=== PATIENT | female | born 1940 | race Caucasian/White ===

== ENCOUNTER → 2017-06-02 | Outpatient (CLI) | payer MEDICARE, BC ==
--- NOTE | 2017-06-02 11:08 | P.HPOB ---
History of Present Illness H&P Date: 06/02/17 Chief Complaint: The patient is here for her routine gynecologic exam and mammogram. This is a 76-year-old with an LMP of 1980. And the patient is without gynecologic complaints and denies any postmenopausal bleeding. Review of Systems The patient has lost about 18 pounds over the last year. She is complaining of fatigue. She denies respiratory or cardiac problems. G.I.: she has occasional problems with hemorrhoids and sometimes they can bleed after a bowel movement. She denies maltreatment or falling. : she denies any significant problems with urinary leakage. Past Medical History Past Medical History: Hyperlipidemia Additional Past Medical History / Comment(s): She also has a history of Paget's disease of the bone, inner ear problems, and macular degeneration. Past Surgical History: Joint Replacement (Hip replacement in 2008. This was complicated with postoperative diverticulitis with an abscess and did require laparotomy with removal of 4 inches of bowel.) Additional Past Surgical History / Comment(s): She also had a colonoscopy in 2013 and she has had multiple colonoscopies before this. She had ear surgery at age 23. Smoking Status: Former smoker (She quit smoking in her 20s.) Past Alcohol Use History: Rare (5 drinks or less in a year is typical for her.) Past Drug Use History: None Reported - Past Family History Mother Sister(s) Family Medical History: Cancer (One sister had bowel and liver cancer. Another sister had lung and breast cancer. Brother had prostate cancer.), Diabetes Mellitus (Mother and sister had diabetes.), Myocardial Infarction ([place]) (Father had an MRI.) Medications and Allergies Home Medications and Allergies Comment(s): Atorvastatin 20 mg daily, Areds 2 vitamin one daily, red rice yeast 600 mg to daily, Centrum Silver vitamin one daily, daily, Restoril generic one at HS typically used 2 nights per week PRN insomnia, vitamin B12 1000 g daily, flaxseed oil 1000 mg daily, glucosamine chondroitin one daily, citracal . Allergies Allergy/AdvReac Type Severity Reaction Status Date / Time Penicillins Allergy Rash/Hives Verified 06/02/17 10:57 Sulfa (Sulfonamide Allergy Rash/Hives Verified 06/02/17 10:57 Antibiotics) Exam - Vital Signs Vital signs: Blood pressure 155/69. Repeat blood pressure 148/68. Height 5'9". Weight 143 pounds. 98.3. Pulse 78. This is a well-developed well-nourished white female who is alert and oriented times 3 in no acute distress. HEENT: Within normal limits. NECK: Supple without mass or thyromegaly. CHEST AND LUNGS: Clear to auscultation. HEART: Regular rate and rhythm. BREASTS: Are without mass or discharge. AXILLARY EXAM: Negative for adenopathy. BACK: Negative for CVA tenderness. ABDOMEN: Soft, nontender, without palpable masses. PELVIC EXAM: Normal external genitalia with moderate atrophy. Cervix and vagina appears moderately to severely atrophic. The cervix is very stenotic, scarred appearing and nearly flat with the back of the vagina consistent with her previous cauterization procedures. There are no lesions noted. There is no unusual discharge. The uterus is midposition, nongravid size and nontender. There are no palpable adnexal masses or tenderness. RECTAL EXAM: recto vaginal exam is negative for master tenderness and is negative for occult blood. EXTREMITIES: Nontender. IMPRESSION: 1. 76-year-old menopausal female with cervical atrophy and scarring consistent with her previous cauterizations. 2. Elevated blood pressure. PLAN: 1. Pap smear was deferred since she had a normal one last year. 2. Self breast examination was discussed. 3. Mammogram will be done today. 4. Bone density testing has been done through Dr. Thomson. She states bone density testing was normal in 2016. She'll continue to do her testing through Dr. Thomson. 5. I have recommended flu shots in the fall. She states she will probably decline this. 6. She will return in one year.
--- NOTE | 2017-06-03 11:37 | MM ---
Reason for exam: screening (asymptomatic). Last mammogram was performed 1 year and 4 months ago. History: Patient is postmenopausal. Physical Findings: A clinical breast exam by your physician is recommended on an annual basis and results should be correlated with mammographic findings. MG 3D Screening Mammo W/Cad Bilateral CC and MLO view(s) were taken. Prior study comparison: February 04, 2016, bilateral MG 3d screening mammo w/cad. December 21, 2013, mammogram, performed at [facility]. The breast tissue is extremely dense which could obscure a lesion on mammography. ASSESSMENT: Negative, BI-RAD 1 RECOMMENDATION: Routine screening mammogram of both breasts in 1 year.
== END | disposition home or self-care (01) ==
LOC: WWCWWP 09:39
PROVIDERS: ATTEND Obstetrics & Gynecology
DX: Z12.31 Encounter for screening mammogram for malignant neoplasm of breast (principal)
CPT/HCPCS: 77063; G0202

== ENCOUNTER 2018-03-29 18:40 | Emergency (ER) | payer MEDICARE, BC ==
[2018-03-29 18:45] VITALS: TEMP 98.1
[2018-03-29] MEDS ORDERED: SODIUM CHLORIDE 0.9% 1,000 ML IV STA (19:12)
[2018-03-29 19:32] LABS: Basophils % (A) 0 %; Eosinophils # (A) 0.2 k/uL (0-0.7); Eosinophils % (A) 4 %; HCT 29.9 % (34.0-46.0); HGB 9.6 gm/dL (11.4-16.0); Lymphocytes % (A) 17 %; MCH 29.4 pg (25.0-35.0); MCHC 32.3 g/dL (31.0-37.0); MCV 91.1 fL (80.0-100.0); Mean Platelet Volume 7.2; Monocytes # (A) 0.6 k/uL (0-1.0); Monocytes % (A) 10 %; Neutrophils # (A) 3.8 k/uL (1.3-7.7); Neutrophils % (A) 65 %; Platelet Count 263 k/uL (150-450); RBC 3.28 m/uL (3.80-5.40); RDW 13.4 % (11.5-15.5); WBC 5.8 k/uL (3.8-10.6)
[2018-03-29 19:55] LABS: Albumin 3.6 g/dL (3.5-5.0); Creatine Kinase 54 U/L (30-135); Magnesium 2.2 mg/dL (1.6-2.3); Total Bilirubin 0.1 mg/dL (0.2-1.3); Total Protein 5.7 g/dL (6.3-8.2)
[2018-03-29 20:05] LABS: Prothrombin Time 9.5 sec (9.0-12.0)
[2018-03-29 20:06] LABS: Creatine Kinase MB 0.5 ng/mL (0.0-2.4); Troponin I <0.012 ng/mL (0.000-0.034)
[2018-03-29 20:11] LABS: Partial Thromboplastin Time 20.1 sec (22.0-30.0)
--- NOTE | 2018-03-29 20:35 | ED ---
General Adult HPI - General Chief complaint: Recheck/Abnormal Lab/Rx Stated complaint: abd labs Time Seen by Provider: 03/29/18 19:10 Source: patient, RN notes reviewed, old records reviewed Mode of arrival: wheelchair Limitations: no limitations - History of Present Illness Initial comments: This is a 77-year-old female the ER for evaluation chronic fatigue and recent fatigue. Patient states she does admit to positive and positive GI bleed as of late. Patient had abnormal outpatient lab test included a 0.0, told to come to the ER for further evaluation. Patient has no active bleeding currently and has no pain. No other complaints - Related Data Home Medications Medication Instructions Recorded Confirmed Atorvastatin [Lipitor] 20 mg PO HS 03/29/18 03/29/18 Calcium Carbonate/Vitamin D3 1 tab PO DAILY 03/29/18 03/29/18 [Calcium 600-Vit D3 400 Tablet] Cyanocobalamin (Vitamin B-12) 1,000 mcg PO DAILY 03/29/18 03/29/18 [Vitamin B-12] Ferrous Sulfate [Feosol] 325 mg PO DAILY 03/29/18 03/29/18 Flaxseed Oil [[place]-3 Flaxseed Oil] 1,000 mg PO DAILY 03/29/18 03/29/18 Glucosam/Paul-Msm1/C/Juanito/Bosw 1 tab PO DAILY 03/29/18 03/29/18 [Glucosamine-Chondroitin Tablet] Lisinopril [Zestril] 10 mg PO HS 03/29/18 03/29/18 Multivit-Min/FA/Lycopen/Lutein 1 tab PO DAILY 03/29/18 03/29/18 [Centrum Silver Tablet] Red Yeast Rice 600 mg PO DAILY 03/29/18 03/29/18 Temazepam 30 mg PO HS PRN 03/29/18 03/29/18 Vit C/E/Zn/Coppr/Lutein/Zeaxan 1 cap PO DAILY 03/29/18 03/29/18 [Preservision Areds 2 Softgel] Allergies Allergy/AdvReac Type Severity Reaction Status Date / Time Penicillins Allergy Rash/Hives Verified 03/29/18 19:28 Sulfa (Sulfonamide Allergy Rash/Hives Verified 03/29/18 19:28 Antibiotics) Review of Systems ROS Statement: Those systems with pertinent positive or pertinent negative responses have been documented in the HPI. ROS Other: All systems not noted in ROS Statement are negative. Past Medical History Past Medical History: Hyperlipidemia Additional Past Medical History / Comment(s): She also has a history of Paget's disease of the bone, inner ear problems, and macular degeneration. History of Any Multi-Drug Resistant Organisms: None Reported Past Surgical History: Joint Replacement Additional Past Surgical History / Comment(s): She also had a colonoscopy in 2013 and she has had multiple colonoscopies before this. She had ear surgery at age 23. Past Psychological History: No Psychological Hx Reported Smoking Status: Former smoker Past Alcohol Use History: Rare Past Drug Use History: None Reported - Past Family History Mother Sister(s) Family Medical History: Cancer (One sister had bowel and liver cancer. Another sister had lung and breast cancer. Brother had prostate cancer.), Diabetes Mellitus (Mother and sister had diabetes.), Myocardial Infarction ([place]) (Father had an MRI.) General Exam Limitations: no limitations General appearance: alert, in no apparent distress Head exam: Present: atraumatic, normocephalic, normal inspection Eye exam: Present: normal appearance, PERRL, EOMI. Absent: scleral icterus, conjunctival injection, periorbital swelling ENT exam: Present: normal exam, mucous membranes moist Neck exam: Present: normal inspection. Absent: tenderness, meningismus, lymphadenopathy Respiratory exam: Present: normal lung sounds bilaterally. Absent: respiratory distress, wheezes, rales, rhonchi, stridor Cardiovascular Exam: Present: regular rate, normal rhythm, normal heart sounds. Absent: systolic murmur, diastolic murmur, rubs, gallop, clicks GI/Abdominal exam: Present: soft, normal bowel sounds. Absent: distended, tenderness, guarding, rebound, rigid Extremities exam: Present: normal inspection, full ROM, normal capillary refill. Absent: tenderness, pedal edema, joint swelling, calf tenderness Back exam: Present: normal inspection Neurological exam: Present: alert, oriented X3, CN II-XII intact Psychiatric exam: Present: normal affect, normal mood Skin exam: Present: warm, dry, intact, normal color. Absent: rash Course Vital Signs 03/29/18 18:43 Temperature 98.1 F Pulse Rate 90 Respiratory 20 Rate Blood Pressure 168/70 O2 Sat by Pulse 99 Oximetry - Reevaluation(s) Reevaluation #1: 03/29/18 20:34 Patient without active bleeding Medical Decision Making - Medical Decision Making 77 female the ER for evaluation, patient will be discharged home to follow-up with primary care regarding anemia, hemoglobin up 1.6 from prior - Lab Data Result diagrams: 03/29/18 19:22 03/29/18 19:22 Lab Results 03/29/18 03/29/18 03/29/18 Range/Units 19:22 19:22 19:22 WBC 5.8 (3.8-10.6) k/uL RBC 3.28 L (3.80-5.40) m/uL Hgb 9.6 L (11.4-16.0) gm/dL Hct 29.9 L (34.0-46.0) % MCV 91.1 (80.0-100.0) fL MCH 29.4 (25.0-35.0) pg MCHC 32.3 (31.0-37.0) g/dL RDW 13.4 (11.5-15.5) % Plt Count 263 (150-450) k/uL Neutrophils % 65 % Lymphocytes % 17 % Monocytes % 10 % Eosinophils % 4 % Basophils % 0 % Neutrophils # 3.8 (1.3-7.7) k/uL Lymphocytes # 1.0 (1.0-4.8) k/uL Monocytes # 0.6 (0-1.0) k/uL Eosinophils # 0.2 (0-0.7) k/uL Basophils # 0.0 (0-0.2) k/uL PT (9.0-12.0) sec INR (<1.2) APTT (22.0-30.0) sec Sodium 141 (137-145) mmol/L Potassium 4.0 (3.5-5.1) mmol/L Chloride 101 (98-107) mmol/L Carbon Dioxide 28 (22-30) mmol/L Anion Gap 12 mmol/L BUN 24 H (7-17) mg/dL Creatinine 1.26 H (0.52-1.04) mg/dL Est GFR (CKD-EPI)AfAm 47 (>60 ml/min/1.73 sqM) Est GFR (CKD-EPI)NonAf 41 (>60 ml/min/1.73 sqM) Glucose 101 H (74-99) mg/dL Calcium 9.0 (8.4-10.2) mg/dL Magnesium 2.2 (1.6-2.3) mg/dL Total Bilirubin 0.1 L (0.2-1.3) mg/dL AST 22 (14-36) U/L ALT 25 (9-52) U/L Alkaline Phosphatase 48 (38-126) U/L Total Creatine Kinase 54 (30-135) U/L CK-MB (CK-2) 0.5 (0.0-2.4) ng/mL CK-MB (CK-2) Rel Index 0.9 Troponin I <0.012 (0.000-0.034) ng/mL Total Protein 5.7 L (6.3-8.2) g/dL Albumin 3.6 (3.5-5.0) g/dL Blood Type Blood Type Recheck Antibody Screen Spec Expiration Date 03/29/18 03/29/18 Range/Units 19:22 19:22 WBC (3.8-10.6) k/uL RBC (3.80-5.40) m/uL Hgb (11.4-16.0) gm/dL Hct (34.0-46.0) % MCV (80.0-100.0) fL MCH (25.0-35.0) pg MCHC (31.0-37.0) g/dL RDW (11.5-15.5) % Plt Count (150-450) k/uL Neutrophils % % Lymphocytes % % Monocytes % % Eosinophils % % Basophils % % Neutrophils # (1.3-7.7) k/uL Lymphocytes # (1.0-4.8) k/uL Monocytes # (0-1.0) k/uL Eosinophils # (0-0.7) k/uL Basophils # (0-0.2) k/uL PT 9.5 (9.0-12.0) sec INR 1.0 (<1.2) APTT 20.1 L (22.0-30.0) sec Sodium (137-145) mmol/L Potassium (3.5-5.1) mmol/L Chloride (98-107) mmol/L Carbon Dioxide (22-30) mmol/L Anion Gap mmol/L BUN (7-17) mg/dL Creatinine (0.52-1.04) mg/dL Est GFR (CKD-EPI)AfAm (>60 ml/min/1.73 sqM) Est GFR (CKD-EPI)NonAf (>60 ml/min/1.73 sqM) Glucose (74-99) mg/dL Calcium (8.4-10.2) mg/dL Magnesium (1.6-2.3) mg/dL Total Bilirubin (0.2-1.3) mg/dL AST (14-36) U/L ALT (9-52) U/L Alkaline Phosphatase (38-126) U/L Total Creatine Kinase (30-135) U/L CK-MB (CK-2) (0.0-2.4) ng/mL CK-MB (CK-2) Rel Index Troponin I (0.000-0.034) ng/mL Total Protein (6.3-8.2) g/dL Albumin (3.5-5.0) g/dL Blood Type A Positive Blood Type Recheck CABO Indicated Antibody Screen NEGATIVE Spec Expiration Date 04/01/2018 - 2321 Disposition Clinical Impression: Anemia, Hemorrhoids, internal, with bleeding Disposition: HOME SELF-CARE Condition: Good Instructions: Anemia (ED), Hemorrhoids (ED) Is patient prescribed a controlled substance at d/c from ED?: No Referrals: Eve Feng DO [Primary Care Provider] - 1-2 days
[2018-03-29 21:02] VITALS: BP 135/62; PULSE 76; RESP 16
== END 2018-03-29 21:02 | disposition home or self-care (01) ==
LOC: EC 18:40
DX: K64.8 Other hemorrhoids (principal); D64.9 Anemia, unspecified; E78.5 Hyperlipidemia, unspecified; Z87.891 Personal history of nicotine dependence; Z79.899 Other long term (current) drug therapy; Z88.0 Allergy status to penicillin; Z88.2 Allergy status to sulfonamides
CPT/HCPCS: 36415; 80053; 82550; 82553; 83735; 84484; 85025; 85610; 85730; 86850; 86900; 86901; 96360; 99284

== ENCOUNTER → 2018-08-10 | Outpatient (CLI) | payer MEDICARE, BC ==
[2018-08-10 10:31] VITALS: BP 125/70; PULSE 81; TEMP 97.8; BMI 21.5
--- NOTE | 2018-08-10 11:19 | P.HPOB ---
History of Present Illness H&P Date: 08/10/18 Chief Complaint: The patient is here for her routine gynecologic exam and mammogram. This is a 77-year-old with an LMP of 1980. The patient is without gynecologic complaints and denies any postmenopausal bleeding. Review of Systems She is gained 3 pounds over the last year. She denies respiratory, cardiac and G.I. problems. She denies maltreatment or problems with falling. : she denies any significant problems with urinary leakage. Past Medical History Past Medical History: Hyperlipidemia Additional Past Medical History / Comment(s): She also has a history of Paget's disease of the bone, inner ear problems, and macular degeneration. History of Any Multi-Drug Resistant Organisms: None Reported Past Surgical History: Bowel Resection (Diverticulitis requiring 4 inches of bowel to be removed.), Joint Replacement (Hip replacement 2008) Additional Past Surgical History / Comment(s): She also had a colonoscopy in 2017 and she has had multiple colonoscopies before this. She had ear surgery at age 23. Past Psychological History: No Psychological Hx Reported Smoking Status: Former smoker (Quit in her 20s.) Past Alcohol Use History: Rare (3 per Year) Past Drug Use History: None Reported Additional History: She's been since 2000 and this is her 2nd marriage. She is retired. She has 4 great grandchildren. - Past Family History Mother Sister(s) Family Medical History: Cancer (Bowel and liver cancer), Diabetes Mellitus, Myocardial Infarction ([place]) Additional Family Medical History / Comment(s): Another sister had lung cancer and breast cancer. Brother(s) Family Medical History: Cancer (Prostate cancer), Diabetes Mellitus Father Family Medical History: Myocardial Infarction ([place]) Medications and Allergies Home Medications Medication Instructions Recorded Confirmed Type Atorvastatin [Lipitor] 20 mg PO HS 03/29/18 08/10/18 History Calcium Carbonate/Vitamin D3 1 tab PO DAILY 03/29/18 08/10/18 History [Calcium 600-Vit D3 400 Tablet] Cyanocobalamin (Vitamin B-12) 1,000 mcg PO DAILY 03/29/18 08/10/18 History [Vitamin B-12] Ferrous Sulfate [Feosol] 325 mg PO DAILY 03/29/18 08/10/18 History Flaxseed Oil [[place]-3 Flaxseed Oil] 1,000 mg PO DAILY 03/29/18 08/10/18 History Glucosam/Paul-Msm1/C/Juanito/Bosw 1 tab PO DAILY 03/29/18 08/10/18 History [Glucosamine-Chondroitin Tablet] Lisinopril [Zestril] 10 mg PO HS 03/29/18 08/10/18 History Multivit-Min/FA/Lycopen/Lutein 1 tab PO DAILY 03/29/18 08/10/18 History [Centrum Silver Tablet] Temazepam 30 mg PO HS PRN 03/29/18 08/10/18 History Vit C/E/Zn/Coppr/Lutein/Zeaxan 1 cap PO DAILY 03/29/18 08/10/18 History [Preservision Areds 2 Softgel] Allergies Allergy/AdvReac Type Severity Reaction Status Date / Time Penicillins Allergy Rash/Hives Verified 08/10/18 10:27 Sulfa (Sulfonamide Allergy Rash/Hives Verified 08/10/18 10:27 Antibiotics) Exam Vital Signs Temp Pulse BP 08/10/18 10:28 97.8 F 81 125/70 Intake and Output 08/09/18 08/10/18 08/10/18 22:59 06:59 14:59 Other: Weight 66.224 kg Height 5'9", BMI 21.6. This is a well-developed well-nourished white female who is alert and oriented times 3 in no acute distress. HEENT: Within normal limits. NECK: Supple without mass or thyromegaly. CHEST AND LUNGS: Clear to auscultation. HEART: Regular rate and rhythm. BREASTS: Are without mass or discharge. AXILLARY EXAM: Negative for adenopathy. BACK: Negative for CVA tenderness. ABDOMEN: Soft, nontender, without palpable masses. PELVIC EXAM: Normal external genitalia with moderate atrophy. Cervix is very stenotic and has a scarred appearance and is nearly flush with the back of the vagina consistent with previous cervical cauterization procedures. There is moderate to severe atrophy of the cervix and vagina.. There is no unusual discharge. There is no evidence of prolapse. The uterus is midposition, nongravid size and nontender. There are no palpable adnexal masses or tenderness. RECTAL EXAM: the original exam is negative for mass or tenderness and is negative for occult blood. EXTREMITIES: Nontender. IMPRESSION: 1. 77-year-old menopausal female with moderate to severe cervical and genital atrophy with cervical scarring consistent with previous cervical cauterizations. PLAN: 1. Pap smear was performed. 2. Self breast awareness was discussed with the patient. 3. Screening mammogram will be done today. 4. Osteoporosis prevention was discussed. Bone density testing will be done through Dr. ashley, her doctor who sees her for her Paget's disease. 5. She will return in one year.
--- NOTE | 2018-08-10 14:38 | MM ---
Reason for exam: screening (asymptomatic). Last mammogram was performed 1 year and 2 months ago. History: Patient is postmenopausal. Physical Findings: A clinical breast exam by your physician is recommended on an annual basis and results should be correlated with mammographic findings. MG 3D Screening Mammo W/Cad Bilateral CC and MLO view(s) were taken. Prior study comparison: June 02, 2017, bilateral MG 3d screening mammo w/cad. February 04, 2016, bilateral MG 3d screening mammo w/cad. The breast tissue is heterogeneously dense. This may lower the sensitivity of mammography. No suspicious abnormality. No significant changes when compared with prior studies. ASSESSMENT: Negative, BI-RAD 1 RECOMMENDATION: Routine screening mammogram of both breasts in 1 year.
== END | disposition home or self-care (01) ==
LOC: WWCWWP 09:43
PROVIDERS: ATTEND Obstetrics & Gynecology
DX: Z12.31 Encounter for screening mammogram for malignant neoplasm of breast (principal)
CPT/HCPCS: 77063; 77067

== ENCOUNTER → 2019-09-26 | Outpatient (CLI) | payer MEDICARE, BC ==
[2019-09-26 14:08] VITALS: BP 146/68; PULSE 79; RESP 18; TEMP 98
--- NOTE | 2019-09-26 14:57 | P.HPOB ---
History of Present Illness H&P Date: 09/26/19 Chief Complaint: The patient is here for her routine gynecologic exam and ma mmogram. This is an 78-year-old with an LMP of 1980. The patient is without gynecologic complaints and denies any postmenopausal bleeding. Review of Systems She has gained about 4 pounds over the last year. She denies respiratory, cardiac and G.I. problems. She can occasionally have some indigestion with certain foods such as chili. She denies maltreatment or problems with falling. : she denies any significant problems with urinary leakage. Past Medical History Past Medical History: Hyperlipidemia Additional Past Medical History / Comment(s): She also has a history of Paget's disease of the bone, inner ear problems, and macular degeneration. 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 She has had cautery of the cervix on 2 occasions, most recently in 2013 for uncertain reasons. History of Any Multi-Drug Resistant Organisms: None Reported Past Surgical History: Bowel Resection, Joint Replacement Additional Past Surgical History / Comment(s): She also had a colonoscopy in 2017 and she has had multiple colonoscopies before this. She had ear surgery at age 23. Past Psychological History: No Psychological Hx Reported Smoking Status: Former smoker Past Alcohol Use History: Rare (6 per Year) Additional Past Alcohol Use History / Comment(s): Quit smoking in her 20s. Past Drug Use History: None Reported Additional History: She has been a since 2018. She is retired. She has 6 great grandchildren. - Past Family History Mother Family Medical History: Diabetes Mellitus Brother(s) Family Medical History: Cancer, Diabetes Mellitus Additional Family Medical History / Comment(s): Prostate cancer. Father Family Medical History: Myocardial Infarction ([place]) Sister(s) Family Medical History: Cancer Additional Family Medical History / Comment(s): Bowel and liver cancer. Another sister had lung cancer and breast cancer. Medications and Allergies Home Medications Medication Instructions Recorded Confirmed Type Atorvastatin [Lipitor] 20 mg PO HS 03/29/18 09/26/19 History Calcium Carbonate/Vitamin D3 1 tab PO DAILY 03/29/18 09/26/19 History [Calcium 600-Vit D3 400 Tablet] Cyanocobalamin (Vitamin B-12) 1,000 mcg PO DAILY 03/29/18 09/26/19 History [Vitamin B-12] Glucosam/Paul-Msm1/C/Juanito/Bosw 1 tab PO DAILY 03/29/18 09/26/19 History [Glucosamine-Chondroitin Tablet] Lisinopril [Zestril] 10 mg PO HS 03/29/18 09/26/19 History Multivit-Min/FA/Lycopen/Lutein 1 tab PO DAILY 03/29/18 09/26/19 History [Centrum Silver Tablet] Temazepam 30 mg PO HS PRN 03/29/18 09/26/19 History Vit C/E/Zn/Coppr/Lutein/Zeaxan 1 cap PO DAILY 03/29/18 09/26/19 History [Preservision Areds 2 Softgel] Aspirin 81 mg PO DAILY 09/26/19 09/26/19 History Allergies Allergy/AdvReac Type Severity Reaction Status Date / Time Penicillins Allergy Rash/Hives Verified 09/26/19 14:08 Sulfa (Sulfonamide Allergy Rash/Hives Verified 09/26/19 14:08 Antibiotics) Exam Vital Signs Temp Pulse Resp BP Pulse Ox 09/26/19 14:00 98.0 F 79 18 146/68 98 Intake and Output 09/25/19 09/26/19 09/26/19 22:59 06:59 14:59 Other: Weight 68.039 kg Height 5 feet 10 inches, weight 150 pounds, BMI 21.5. This is a well-developed well-nourished white female who is alert and oriented times 3 in no acute distress. HEENT: Within normal limits. NECK: Supple without mass or thyromegaly. CHEST AND LUNGS: Clear to auscultation. HEART: Regular rate and rhythm. BREASTS: Are without mass or discharge. AXILLARY EXAM: Negative for adenopathy. BACK: Negative for CVA tenderness. ABDOMEN: Soft, nontender, without palpable masses. PELVIC EXAM: Normal external genitalia with mild to moderate atrophy. Cervix and vagina appear normal with moderate atrophy. The cervix is nearly flush with the the back of the vagina probably consistent with her history of previous cervical cauterizations. There is no unusual discharge. There is no evidence of prolapse. The uterus is midposition, nongravid size and nontender. There are no palpable adnexal masses or tenderness. RECTAL EXAM: Rectovaginal exam is negative for pelvic masses, however, a mass in the anterior rectum is palpable with my finger that initially was felt to be possibly stool, however, it did not move and was fixed to the anterior rectal wall. The mass measures approximately 1.5 x 1.0 cm and is nontender. The mass is firmer than a typical hemorrhoid. There are no other masses. The rectal exam was negative for occult blood. EXTREMITIES: Nontender. IMPRESSION: 1. 78-year-old menopausal female with normal gynecologic exam. 2. Anterior rectal mass measuring 1.5 x 1.0 cm. PLAN: 1. Pap smear was deferred since she had a normal one on 08/10/2018. Because of her history of abnormal Pap smears and history of cervical cauterization as recent as 2013, we will continue Pap smears about every 2-3 years until we have had 3 negative ones in a row. 2. Self breast awareness was discussed with the patient. 3. Screening mammogram will be done today. 4. I have discussed the rectal finding with the patient. Her general surgeon who did her colonoscopy is [facility]. She states she will follow-up with that doctor for evaluation and rectal examination. I will let that doctor determine if anything further as needed. I have stressed the importance of following through with that evaluation especially with her family history of colon cancer. 5. She does not get flu shots in the fall. I have asked her to reconsider this decision. 6. 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 His name is Dr. Thomson. 7. She was advised to return in one year for her annual well woman exam.
--- NOTE | 2019-09-27 11:18 | MM ---
Reason for exam: screening (asymptomatic). Last mammogram was performed 1 year and 2 months ago. History: Patient is postmenopausal and has history of other cancer at age 78. Family history of breast cancer in sister at age 63. Benign excisional biopsy of both breasts, 1979. Physical Findings: A clinical breast exam by your physician is recommended on an annual basis and results should be correlated with mammographic findings. MG 3D Screening Mammo W/Cad Bilateral CC and MLO view(s) were taken. Prior study comparison: August 10, 2018, bilateral MG 3d screening mammo w/cad. June 02, 2017, bilateral MG 3d screening mammo w/cad. The breast tissue is heterogeneously dense. This may lower the sensitivity of mammography. Finding: There are typically benign vascular calcifications in the anterior position of the left breast. There is no discrete abnormality. ASSESSMENT: Benign, BI-RAD 2 RECOMMENDATION: Routine screening mammogram of both breasts in 1 year.
--- NOTE | 2019-10-03 09:17 | P.PN ---
Progress Note - Text Progress Note Date: 10/03/19 OUTPATIENT FOLLOW-UP NOTE TEST(S)/RESULTS: Mammogram on 09/26/2019 was benign. METHOD OF NOTIFICATION: Patient was notified by phone. PATIENT COMMENTS: Patient states she has an appointment with her general surgeon, Dr. Carias, who is in [place]. The appointment is to further evaluate the rectal mass noted on exam. Her appointment is on 10/05/2019. DIAGNOSIS: Benign mammogram. Rectal mass on exam with follow-up appointment with her general surgeon on 10/05/2019. DISCUSSION: I have asked her to have her general surgeon send me a letter regarding his findings and plan, or she can call to let me know these things after her appointment. PLAN: Appointment with her general surgeon on 10/05/2019 regarding the rectal mass.
== END | disposition home or self-care (01) ==
LOC: WWCWWP 13:51
PROVIDERS: ATTEND Obstetrics & Gynecology
DX: Z12.31 Encounter for screening mammogram for malignant neoplasm of breast (principal)
CPT/HCPCS: 77063; 77067

== ENCOUNTER → 2020-12-24 | Outpatient (CLI) | payer MEDICARE, BC ==
[2020-12-24 12:57] VITALS: BP 129/75; PULSE 80; RESP 18; TEMP 98.1
--- NOTE | 2020-12-24 13:49 | P.HPOB ---
History of Present Illness H&P Date: 12/24/20 Chief Complaint: The patient is here for her routine gynecologic exam and ma mmogram. This is an 80-year-old with an LMP of 1980. The patient is without gynecologic complaints and denies any postmenopausal bleeding. She is currently on an antibiotic for a UTI. Review of Systems Weight has been stable. She denies respiratory, cardiac and G.I. problems. She denies maltreatment or problems with falling. : she denies any significant p roblems with urinary leakage prior to her current UTI. Past Medical History Past Medical History: Hyperlipidemia Additional Past Medical History / Comment(s): She also has a history of Paget's disease of the bone, inner ear problems, and macular degeneration. 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 She has had cautery of the cervix on 2 occasions, most recently in 2013 for uncertain reasons. History of Any Multi-Drug Resistant Organisms: None Reported Past Surgical History: Bowel Resection, Joint Replacement Additional Past Surgical History / Comment(s): She also had a colonoscopy in 2017 and she has had multiple colonoscopies before this. She had ear surgery at age 23. Past Psychological History: No Psychological Hx Reported Smoking Status: Former smoker Past Alcohol Use History: Rare (3 per year) Additional Past Alcohol Use History / Comment(s): Quit smoking in her 20s. Past Drug Use History: None Reported Additional History: She has been a since 2018 and is not sexually active. She is retired and has 9 great-grandchildren. - Past Family History Brother(s) Family Medical History: Cancer, Diabetes Mellitus Additional Family Medical History / Comment(s): Prostate cancer. Father Family Medical History: Myocardial Infarction ([place]) Mother Family Medical History: Diabetes Mellitus Sister(s) Family Medical History: Cancer Additional Family Medical History / Comment(s): Bowel and liver cancer. Another sister had lung cancer and breast cancer. Medications and Allergies Home Medications Medication Instructions Recorded Confirmed Type Atorvastatin [Lipitor] 20 mg PO HS 03/29/18 12/24/20 History Calcium Carbonate/Vitamin D3 1 tab PO DAILY 03/29/18 12/24/20 History [Calcium 600-Vit D3 400 Tablet] Cyanocobalamin (Vitamin B-12) 1,000 mcg PO DAILY 03/29/18 12/24/20 History [Vitamin B-12] Glucosam/Paul-Msm1/C/Juanito/Bosw 1 tab PO DAILY 03/29/18 12/24/20 History [Glucosamine-Chondroitin Tablet] Multivit-Min/FA/Lycopen/Lutein 1 tab PO DAILY 03/29/18 12/24/20 History [Centrum Silver Tablet] Temazepam 30 mg PO HS PRN 03/29/18 12/24/20 History Vit C/E/Zn/Coppr/Lutein/Zeaxan 1 cap PO DAILY 03/29/18 12/24/20 History [Preservision Areds 2 Softgel] lisinopriL [Zestril] 10 mg PO HS 03/29/18 12/24/20 History Aspirin 81 mg PO DAILY 09/26/19 12/24/20 History Ascorbic Acid [Vitamin C] 500 mg PO DAILY 12/24/20 12/24/20 History Allergies Allergy/AdvReac Type Severity Reaction Status Date / Time Penicillins Allergy Rash/Hives Verified 12/24/20 12:50 Sulfa (Sulfonamide Allergy Rash/Hives Verified 12/24/20 12:50 Antibiotics) Exam Vital Signs Temp Pulse Resp BP Pulse Ox 12/24/20 12:52 98.1 F 80 18 129/75 97 Intake and Output 12/23/20 12/24/20 12/24/20 22:59 06:59 14:59 Other: Weight 68.039 kg Height 5 feet 9 inches, weight 150 pounds, BMI 22.2. This is a well-developed well-nourished white female who is alert and oriented times 3 in no acute distress. HEENT: Within normal limits. NECK: Supple without mass or thyromegaly. CHEST AND LUNGS: Clear to auscultation. HEART: Regular rate and rhythm. BREASTS: Are without mass or discharge. AXILLARY EXAM: Negative for adenopathy. BACK: Negative for CVA tenderness. ABDOMEN: Soft, nontender, without palpable masses. PELVIC EXAM: Normal external genitalia with moderate atrophy. Cervix and vagina appear normal with moderate atrophy. The cervix is somewhat flush with the back of the vagina consistent with her previous cervical cauterizations. There is no unusual discharge. There is no evidence of prolapse. The uterus is midposition, atrophic and nontender. There are no palpable adnexal masses or tenderness. RECTAL EXAM: Rectovaginal exam is negative for mass or tenderness and is nega tive for occult blood. EXTREMITIES: Nontender. IMPRESSION: 1. 80-year-old menopausal female with unremarkable gynecologic exam. 2. History of cauterization of the cervix in 2013 for an uncertain diagnosis. PLAN: 1. Pap smear cotest was performed. Since the cauterization of the cervix could have been for cervical dysplasia we will continue to do Pap smear testing through 2033. If the cotest is negative for the Pap smear and at the high-risk HPV, we will repeat this in 4-5 years. 2. Self breast awareness was discussed with the patient. 3. Screening mammogram will be done today. 4. Osteoporosis prevention was discussed. I have stressed the importance of adequate calcium, vitamin D and regular exercise. Recommended amounts of calcium and vitamin D were also discussed. She will have her bone density testing done through her bone doctor, Dr. Thomson as she has done in the past. 5. She states she does not get flu shots. I have recommended she consider the Covid vaccination when it is available to her. 6. The patient was advised to return in 1-2 years for her well woman examination.
--- NOTE | 2020-12-26 14:20 | MM ---
Reason for exam: screening (asymptomatic). Last mammogram was performed 1 year and 3 months ago. History: Patient is postmenopausal and has history of other cancer at age 78. Family history of breast cancer in sister at age 63. Benign excisional biopsy of both breasts, 1979. Physical Findings: A clinical breast exam by your physician is recommended on an annual basis and results should be correlated with mammographic findings. MG 3D Screening Mammo W/Cad Bilateral CC and MLO view(s) were taken. Prior study comparison: September 26, 2019, bilateral MG 3d screening mammo w/cad. August 10, 2018, bilateral MG 3d screening mammo w/cad. The breast tissue is heterogeneously dense. This may lower the sensitivity of mammography. No significant changes when compared with prior studies. ASSESSMENT: Negative, BI-RAD 1 RECOMMENDATION: Routine screening mammogram of both breasts in 1 year. Patient should continue monthly self breast exams. A negative report should not preclude additional follow up of suspicious palpable abnormalities.
== END | disposition home or self-care (01) ==
LOC: WWCWWP 12:24
PROVIDERS: ATTEND Obstetrics & Gynecology
DX: Z12.31 Encounter for screening mammogram for malignant neoplasm of breast (principal)
CPT/HCPCS: 77063; 77067

== ENCOUNTER 2021-05-14 18:04 | Observation (INO) | payer MEDICARE, BC ==
[2021-05-14] MEDS ORDERED: SODIUM CHLORIDE 0.9% 1,000 ML IV STA (18:28)
--- NOTE | 2021-05-14 18:31 | ED ---
General Adult HPI - General Chief complaint: Weakness Stated complaint: Weakness Time Seen by Provider: 05/14/21 18:05 Source: patient, EMS, RN notes reviewed, old records reviewed Mode of arrival: EMS Limitations: no limitations - History of Present Illness Initial comments: This is an 80-year-old female presents emergency department stating that yeste rday and today she didn't feel very good and today at about 3:00 after she had seen her doctor and been given one a Catapres causes her blood pressure was high she started becoming nauseous and vomited a couple times. Patient states she still feels very tired and drained. Patient denies any fever chills or cough per patient denies any chest pain or palpitations. Patient denies any shortness of breath or difficulty breathing. Patient denies any abdominal pain. Patient denies any diarrhea. Patient denies any recent injury or trauma. Patient denies any dysuria hematuria or urinary frequency. Patient denies headache patient denies numbness weakness. Patient denies any lightheadedness dizziness or near syncopal episode. - Related Data Home Medications Medication Instructions Recorded Confirmed Atorvastatin [Lipitor] 20 mg PO HS 03/29/18 05/14/21 Calcium Carbonate/Vitamin D3 1 tab PO DAILY 03/29/18 05/14/21 [Calcium 600-Vit D3 400 Tablet] Cyanocobalamin (Vitamin B-12) 1,000 mcg PO DAILY 03/29/18 05/14/21 [Vitamin B-12] Glucosam/Paul-Msm1/C/Juanito/Bosw 1 tab PO DAILY 03/29/18 05/14/21 [Glucosamine-Chondroitin Tablet] Multivit-Min/FA/Lycopen/Lutein 1 tab PO DAILY 03/29/18 05/14/21 [Centrum Silver Tablet] Temazepam 30 mg PO HS PRN 03/29/18 05/14/21 Vit C/E/Zn/Coppr/Lutein/Zeaxan 1 cap PO DAILY 03/29/18 05/14/21 [Preservision Areds 2 Softgel] lisinopriL [Zestril] 10 mg PO HS 03/29/18 05/14/21 Aspirin 81 mg PO DAILY 09/26/19 05/14/21 Ascorbic Acid [Vitamin C] 500 mg PO DAILY 12/24/20 05/14/21 Turmeric Root Extract [Turmeric] 500 mg PO DAILY 05/14/21 05/14/21 Allergies Allergy/AdvReac Type Severity Reaction Status Date / Time Penicillins Allergy Rash/Hives Verified 05/14/21 19:49 Sulfa (Sulfonamide Allergy Rash/Hives Verified 05/14/21 19:49 Antibiotics) Review of Systems ROS Statement: Those systems with pertinent positive or pertinent negative responses have been documented in the HPI. ROS Other: All systems not noted in ROS Statement are negative. Past Medical History Past Medical History: Hyperlipidemia, Hypertension Additional Past Medical History / Comment(s): She also has a history of Paget's disease of the bone, inner ear problems, and macular degeneration. 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 She has had cautery of the cervix on 2 occasions, most recently in 2013 for uncertain reasons. History of Any Multi-Drug Resistant Organisms: None Reported Past Surgical History: Bowel Resection, Joint Replacement Additional Past Surgical History / Comment(s): She also had a colonoscopy in 2017 and she has had multiple colonoscopies before this. She had ear surgery at age 23. Past Psychological History: No Psychological Hx Reported Smoking Status: Former smoker Past Alcohol Use History: Rare Past Drug Use History: None Reported - Past Family History Brother(s) Family Medical History: Cancer, Diabetes Mellitus Additional Family Medical History / Comment(s): Prostate cancer. Father Family Medical History: Myocardial Infarction ([place]) Mother Family Medical History: Diabetes Mellitus Sister(s) Family Medical History: Cancer Additional Family Medical History / Comment(s): Bowel and liver cancer. Another sister had lung cancer and breast cancer. General Exam - General Exam Comments Initial Comments: GENERAL: Patient is well-developed and well-nourished. Patient is nontoxic and well- hydrated and is in mild distress. ENT: Neck is soft and supple. No significant lymphadenopathy is noted. Oropharynx is clear. Moist mucous membranes. Neck has full range of motion without eliciting any pain. EYES: The sclera were anicteric and conjunctiva were pink and moist. Extraocular movements were intact and pupils were equal round and reactive to light. Eyelids were unremarkable. PULMONARY: Unlabored respirations. Good breath sounds bilaterally. No audible rales rhonchi or wheezing was noted. CARDIOVASCULAR: There is a regular rate and rhythm without any murmurs gallops or rubs. ABDOMEN: Soft and nontender with normal bowel sounds. SKIN: Skin is clear with no lesions or rashes and otherwise unremarkable. NEUROLOGIC: Patient is alert and oriented x3. Cranial nerves II through XII are grossly intact. Motor and sensory are also intact. Normal speech, volume and content. Symmetrical smile. MUSCULOSKELETAL: Normal extremities with adequate strength and full range of motion. No lower extremity swelling or edema. No calf tenderness. LYMPHATICS: No significant lymphadenopathy is noted PSYCHIATRIC: Normal psychiatric evaluation. Limitations: no limitations Course Vital Signs 05/14/21 05/14/21 18:06 19:00 Temperature 98.0 F Pulse Rate 66 61 Respiratory 18 18 Rate Blood Pressure 161/73 143/61 O2 Sat by Pulse 98 Oximetry Medical Decision Making - Medical Decision Making EKG shows normal sinus rhythm at 63 bpm [place] interval 192 QRS is 82 QT interval 444 QTC is 454. Patient's EKG shows no ST segment elevation or depression. Patient's daughters arrived and they mentioned to me now that the patient had a syncopal episode last week and today he almost passed out when she came home from the doctor's office. Patient laid on the floor for an hour and a half prior to getting any help from the family patient states she was too weak to get up and she was lightheaded and thought she might pass out if she stood up. Patient states she still does not feel neck to her baseline and she is uncomfortable going home the daughter prefer her to stay overnight to be observed since her syncopal and then near syncopal episode had occurred within a week I spoke with [facility] see agreed to admit the patient admitted the patient wrote admitting orders. - Lab Data Result diagrams: 05/14/21 18:30 05/14/21 18:30 Lab Results 05/14/21 05/14/21 05/14/21 Range/Units 18:30 18:30 18:30 WBC 9.5 (3.8-10.6) k/uL RBC 4.35 (3.80-5.40) m/uL Hgb 13.8 (11.4-16.0) gm/dL Hct 40.0 (34.0-46.0) % MCV 91.8 (80.0-100.0) fL MCH 31.7 (25.0-35.0) pg MCHC 34.6 (31.0-37.0) g/dL RDW 13.1 (11.5-15.5) % Plt Count 188 (150-450) k/uL MPV 7.1 Neutrophils % 88 % Lymphocytes % 6 % Monocytes % 4 % Eosinophils % 1 % Basophils % 0 % Neutrophils # 8.3 H (1.3-7.7) k/uL Lymphocytes # 0.6 L (1.0-4.8) k/uL Monocytes # 0.4 (0-1.0) k/uL Eosinophils # 0.1 (0-0.7) k/uL Basophils # 0.0 (0-0.2) k/uL PT 10.3 (9.0-12.0) sec INR 1.0 (<1.2) APTT 20.6 L (22.0-30.0) sec Sodium (137-145) mmol/L Potassium (3.5-5.1) mmol/L Chloride (98-107) mmol/L Carbon Dioxide (22-30) mmol/L Anion Gap mmol/L BUN (7-17) mg/dL Creatinine (0.52-1.04) mg/dL Est GFR (CKD-EPI)AfAm (>60 ml/min/1.73 sqM) Est GFR (CKD-EPI)NonAf (>60 ml/min/1.73 sqM) Glucose (74-99) mg/dL Plasma Lactic Acid Oli (0.7-2.0) mmol/L Calcium (8.4-10.2) mg/dL Magnesium (1.6-2.3) mg/dL Total Bilirubin (0.2-1.3) mg/dL AST (14-36) U/L ALT (4-34) U/L Alkaline Phosphatase (38-126) U/L Troponin I (0.000-0.034) ng/mL Total Protein (6.3-8.2) g/dL Albumin (3.5-5.0) g/dL Urine Color Yellow Urine Appearance Clear (Clear) Urine pH 7.0 (5.0-8.0) Ur Specific Mitchell 1.014 (1.001-1.035) Urine Protein Negative (Negative) Urine Glucose (UA) Negative (Negative) Urine Ketones 1+ H (Negative) Urine Blood Negative (Negative) Urine Nitrite Negative (Negative) Urine Bilirubin Negative (Negative) Urine Urobilinogen <2.0 (<2.0) mg/dL Ur Leukocyte Esterase Trace H (Negative) Urine RBC 2 (0-5) /hpf Urine WBC 1 (0-5) /hpf Amorphous Sediment Rare H (None) /hpf Hyaline Casts 3 H (0-2) /lpf Urine Mucus Rare H (None) /hpf 05/14/21 05/14/21 05/14/21 Range/Units 18:30 18:30 18:30 WBC (3.8-10.6) k/uL RBC (3.80-5.40) m/uL Hgb (11.4-16.0) gm/dL Hct (34.0-46.0) % MCV (80.0-100.0) fL MCH (25.0-35.0) pg MCHC (31.0-37.0) g/dL RDW (11.5-15.5) % Plt Count (150-450) k/uL MPV Neutrophils % % Lymphocytes % % Monocytes % % Eosinophils % % Basophils % % Neutrophils # (1.3-7.7) k/uL Lymphocytes # (1.0-4.8) k/uL Monocytes # (0-1.0) k/uL Eosinophils # (0-0.7) k/uL Basophils # (0-0.2) k/uL PT (9.0-12.0) sec INR (<1.2) APTT (22.0-30.0) sec Sodium 132 L (137-145) mmol/L Potassium 4.7 (3.5-5.1) mmol/L Chloride 99 (98-107) mmol/L Carbon Dioxide 28 (22-30) mmol/L Anion Gap 5 mmol/L BUN 22 H (7-17) mg/dL Creatinine 1.02 (0.52-1.04) mg/dL Est GFR (CKD-EPI)AfAm 60 (>60 ml/min/1.73 sqM) Est GFR (CKD-EPI)NonAf 52 (>60 ml/min/1.73 sqM) Glucose 120 H (74-99) mg/dL Plasma Lactic Acid Oli 1.2 (0.7-2.0) mmol/L Calcium 9.1 (8.4-10.2) mg/dL Magnesium 2.1 (1.6-2.3) mg/dL Total Bilirubin 0.6 (0.2-1.3) mg/dL AST 31 (14-36) U/L ALT 18 (4-34) U/L Alkaline Phosphatase 64 (38-126) U/L Troponin I <0.012 (0.000-0.034) ng/mL Total Protein 6.3 (6.3-8.2) g/dL Albumin 4.0 (3.5-5.0) g/dL Urine Color Urine Appearance (Clear) Urine pH (5.0-8.0) Ur Specific Mitchell (1.001-1.035) Urine Protein (Negative) Urine Glucose (UA) (Negative) Urine Ketones (Negative) Urine Blood (Negative) Urine Nitrite (Negative) Urine Bilirubin (Negative) Urine Urobilinogen (<2.0) mg/dL Ur Leukocyte Esterase (Negative) Urine RBC (0-5) /hpf Urine WBC (0-5) /hpf Amorphous Sediment (None) /hpf Hyaline Casts (0-2) /lpf Urine Mucus (None) /hpf Disposition Clinical Impression: Near syncope Disposition: ADMITTED IP TO THIS HOSP Referrals: Eve Feng DO [Primary Care Provider] - 1-2 days Time of Disposition: 20:38
[2021-05-14 18:40] LABS: Basophils % (A) 0 %; Eosinophils # (A) 0.1 k/uL (0-0.7); Eosinophils % (A) 1 %; HGB 13.8 gm/dL (11.4-16.0); Lymphocytes # (A) 0.6 k/uL (1.0-4.8); Lymphocytes % (A) 6 %; MCH 31.7 pg (25.0-35.0); MCHC 34.6 g/dL (31.0-37.0); MCV 91.8 fL (80.0-100.0); Mean Platelet Volume 7.1; Monocytes # (A) 0.4 k/uL (0-1.0); Monocytes % (A) 4 %; Neutrophils # (A) 8.3 k/uL (1.3-7.7); Neutrophils % (A) 88 %; Platelet Count 188 k/uL (150-450); RBC 4.35 m/uL (3.80-5.40); RDW 13.1 % (11.5-15.5); WBC 9.5 k/uL (3.8-10.6)
[2021-05-14 18:54] LABS: Calcium 9.1 mg/dL (8.4-10.2); Magnesium 2.1 mg/dL (1.6-2.3); Potassium 4.7 mmol/L (3.5-5.1); Total Bilirubin 0.6 mg/dL (0.2-1.3); Total Protein 6.3 g/dL (6.3-8.2)
[2021-05-14 18:55] LABS: Prothrombin Time 10.3 sec (9.0-12.0)
[2021-05-14 19:12] LABS: Partial Thromboplastin Time 20.6 sec (22.0-30.0)
--- NOTE | 2021-05-14 19:45 | XR ---
EXAMINATION TYPE: XR chest 2V DATE OF EXAM: 05/14/2021 CLINICAL HISTORY: Weakness. TECHNIQUE: Frontal and lateral view of the chest. COMPARISON: None FINDINGS: The cardiomediastinal silhouette is within normal limits for size. Pulmonary vasculature i s normal. There is no focal air space opacity. No pleural effusion. No pneumothorax seen. There is m ild height loss of several midthoracic vertebral bodies. IMPRESSION: 1. No acute cardiopulmonary process. 2. Mild height loss of several midthoracic vertebral bodies of uncertain chronicity. No prior compari sons available.
[2021-05-14 19:49] LABS: Amorphous Sediment,Urine Rare /hpf; Appearance,Urine Clear (Clear); Bilirubin,Urine Negative (Negative); Blood,Urine Negative (Negative); Color,Urine Yellow; Glucose,Urine (UA) Negative (Negative); Hyaline Casts,Urine 3 /lpf (0-2); Ketones,Urine 1+ (Negative); Leukocyte Esterase,Urine Trace (Negative); Mucus,Urine Rare /hpf; Nitrite,Urine Negative (Negative); Protein,Urine Negative (Negative); RBC,Urine 2 /hpf (0-5); Specific Gravity,Urine 1.014 (1.001-1.035); Urobilinogen,Urine <2.0 mg/dL (<2.0); WBC,Urine 1 /hpf (0-5)
[2021-05-14] MEDS ORDERED: SODIUM CHLORIDE 0.9% 1,000 ML IV ONE (20:55)
[2021-05-14] MEDS ORDERED: lisinopriL 10 MG TAB PO SCH (21:00)
--- NOTE | 2021-05-15 10:46 | P.CRDCN ---
History of Present Illness History of present illness: HISTORY OF PRESENTING ILLNESS This is a pleasant 80-year-old female past medical history significant for hypertension and dyslipidemia. She follows in the office with Dr. Chairez. We have been asked to see in consultation for near syncope and hypertension. She states yesterday she went to see her PCP secondary to leg pain. She states for the previous one months she has been experiencing numbness and tingling in her bilateral lower extremities from the knee down. She is also having pain in her knee actually causes her to wake up at night. She was in the office her blood p ressure was checked and came to be elevated over 200 systolic. She was given Catapres, unknown dose. She was then sent home. She states she went to Her prescription from the pharmacy and went home. She felt extremely tired so she sat down and was going to lay down and take a nap but realized she had to let her dog up. She stood up to let her dog out she felt extremely weak and had to lay down on the floor. She states she thinks she laid there for approximately 2 hours chest she could hear her clock timing. In that time. She was dizzy, nauseated and had vomited and urinated on herself. She is unsure if she passed out or lost consciousness during this time. On arrival to the emergency department her blood pressure was 161/73 heart rate is 66. EKG revealed sinus mechanism heart rate of [address] or T wave abnormalities noted. Chest x-ray was negative for an acute cardiopulmonary process. Laboratory data reviewed, CBC unremarkable, sodium 132, potassium 4.7, creatinine 1.02, cardiac enzymes negative 1. Current daily cardiac medications include lisinopril 10 mg daily. The patient states she has been on lisinopril 10 mg daily for some time however in January she believes that she had Covid and was sick for a couple of weeks. Thereafter she was feeling chronically fatigued and Dr. Chairez advised her to decrease her lisinopril to 5 mg daily. Since that time she has been taking lisinopril 5 mg daily. REVIEW OF SYSTEMS At the time of my exam: CONSTITUTIONAL: Denies fever or chills. CARDIOVASCULAR: Denies chest pain, shortness of breath, orthopnea, PND or pal pitations. RESPIRATORY: Denies cough. GASTROINTESTINAL: Denies abdominal pain, diarrhea, constipation, nausea or vomiting. MUSCULOSKELETAL: Denies myalgias. NEUROLOGIC: Denies numbness, tingling, headacbe or weakness. ENDOCRINE: Denies fatigue, weight change, polydipsia or polyurina. GENITOURINARY: Denies burning, hematuria or urgency with micturation. HEMATOLOGIC: Denies history of anemia or bleeding. PHYSICAL EXAMINATION Blood pressure 130/63 heart rate 67 afebrile and maintaining oxygen saturation on room air. CONSTITUTIONAL: No apparent distress. HEENT: Head is normocephalic. Pupils are equal, round. Sclerae anicteric. Mucous membranes of the mouth are moist. No JVD. No carotid bruit. CHEST EXAMINATION: Lungs are clear to auscultation. No chest wall tenderness is noted on palpation or with deep breathing. HEART EXAMINATION: Regular rate and rhythm. S1, S2 heard. No murmurs, gallops or rub. ABDOMEN: Soft, nontender. Positive bowel sounds. EXTREMITIES: 2+ peripheral pulses, no lower extremity edema and no calf tenderness. NEUROLOGIC EXAMINATION: Patient is awake, alert and oriented x3. ASSESSMENT Generalized weakness Hypertension Dyslipidemia Suspect component of peripheral neuropathy PLAN An acute coronary event has been ruled out. No EKG or telemetry evidence of an acute arrhythmia or significant pauses. Obtain orthostatic vital signs. It is likely that her blood pressure fluctuates significantly throughout the day likely related to some component of peripheral neuropathy given her complaints of lower extremity numbness, pain and tingling. Advised the patient to increase her lisinopril back to 10 mg daily in 2 doses of 5 mg each. Increase activity and ambulation. If her blood pressure remained stable she may be discharged this evening however if she continues to fluctuate significantly we will monitor overnight and get a renal Doppler duplex in the morning. She already has an appointment with Dr. Chairez next week in the office. Thank you kindly for this consultation. Nurse Practitioner note has been reviewed, I agree with a documented findings and plan of care. Patient was seen and examined. Past Medical History Past Medical History: Hyperlipidemia, Hypertension Additional Past Medical History / Comment(s): She also has a history of Paget's disease of the bone, inner ear problems, and macular degeneration. 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 She has had cautery of the cervix on 2 occasions, most recently in 2013 for uncertain reasons. History of Any Multi-Drug Resistant Organisms: None Reported Past Surgical History: Bowel Resection, Joint Replacement Additional Past Surgical History / Comment(s): She also had a colonoscopy in 2017 and she has had multiple colonoscopies before this. She had ear surgery at age 23. Past Anesthesia/Blood Transfusion Reactions: No Reported Reaction Past Psychological History: No Psychological Hx Reported Smoking Status: Former smoker Past Alcohol Use History: Rare Additional Past Alcohol Use History / Comment(s): Quit smoking in her 20s. Past Drug Use History: None Reported - Past Family History Brother(s) Family Medical History: Cancer, Diabetes Mellitus Additional Family Medical History / Comment(s): Prostate cancer. Father Family Medical History: Myocardial Infarction ([place]) Mother Family Medical History: Diabetes Mellitus Sister(s) Family Medical History: Cancer Additional Family Medical History / Comment(s): Bowel and liver cancer. Another sister had lung cancer and breast cancer. Medications and Allergies Home Medications Medication Instructions Recorded Confirmed Type Atorvastatin [Lipitor] 20 mg PO HS 03/29/18 05/14/21 History Calcium Carbonate/Vitamin D3 1 tab PO DAILY 03/29/18 05/14/21 History [Calcium 600-Vit D3 400 Tablet] Cyanocobalamin (Vitamin B-12) 1,000 mcg PO DAILY 03/29/18 05/14/21 History [Vitamin B-12] Glucosam/Paul-Msm1/C/Juanito/Bosw 1 tab PO DAILY 03/29/18 05/14/21 History [Glucosamine-Chondroitin Tablet] Multivit-Min/FA/Lycopen/Lutein 1 tab PO DAILY 03/29/18 05/14/21 History [Centrum Silver Tablet] RX: Temazepam 30 mg PO HS PRN 03/29/18 05/14/21 History Vit C/E/Zn/Coppr/Lutein/Zeaxan 1 cap PO DAILY 03/29/18 05/14/21 History [Preservision Areds 2 Softgel] lisinopriL [Zestril] 10 mg PO HS 03/29/18 05/14/21 History RX: Aspirin 81 mg PO DAILY 09/26/19 05/14/21 History Ascorbic Acid [Vitamin C] 500 mg PO DAILY 12/24/20 05/14/21 History Turmeric Root Extract [Turmeric] 500 mg PO DAILY 05/14/21 05/14/21 History Allergies Allergy/AdvReac Type Severity Reaction Status Date / Time Penicillins Allergy Rash/Hives Verified 05/14/21 19:49 Sulfa (Sulfonamide Allergy Rash/Hives Verified 05/14/21 19:49 Antibiotics) Physical Exam Vitals: Vital Signs Temp Pulse Pulse Resp BP BP Pulse Ox 05/15/21 07:00 97.8 F 67 17 130/63 98 05/15/21 02:25 97.9 F 66 16 120/58 95 05/15/21 02:00 69 14 05/14/21 21:48 97.7 F 69 14 145/59 98 05/14/21 21:32 68 18 148/65 98 05/14/21 19:00 61 18 143/61 05/14/21 18:06 98.0 F 66 18 161/73 98 Intake and Output 05/14/21 05/15/21 05/15/21 22:59 06:59 14:59 Other: Voiding Method Toilet # Voids 1 3 Weight 66.678 kg Results 05/14/21 18:30 05/14/21 18:30 Cardiac Enzymes 05/14/21 05/14/21 Range/Units 18:30 18:30 AST 31 (14-36) U/L Troponin I <0.012 (0.000-0.034) ng/mL Coagulation 05/14/21 Range/Units 18:30 PT 10.3 (9.0-12.0) sec APTT 20.6 L (22.0-30.0) sec CBC 05/14/21 Range/Units 18:30 WBC 9.5 (3.8-10.6) k/uL RBC 4.35 (3.80-5.40) m/uL Hgb 13.8 (11.4-16.0) gm/dL Hct 40.0 (34.0-46.0) % Plt Count 188 (150-450) k/uL Comprehensive Metabolic Panel 05/14/21 Range/Units 18:30 Sodium 132 L (137-145) mmol/L Potassium 4.7 (3.5-5.1) mmol/L Chloride 99 (98-107) mmol/L Carbon Dioxide 28 (22-30) mmol/L BUN 22 H (7-17) mg/dL Creatinine 1.02 (0.52-1.04) mg/dL Glucose 120 H (74-99) mg/dL Calcium 9.1 (8.4-10.2) mg/dL AST 31 (14-36) U/L ALT 18 (4-34) U/L Alkaline Phosphatase 64 (38-126) U/L Total Protein 6.3 (6.3-8.2) g/dL Albumin 4.0 (3.5-5.0) g/dL Current Medications Generic Name Dose Route Start Last Admin Trade Name Freq PRN Reason Stop Dose Admin Sodium Chloride 1,000 mls @ 75 mls/hr 05/14/21 20:55 05/14/21 21:23 Saline 0.9% IV 05/15/21 10:14 75 mls/hr .[id number] ONE Administration Lisinopril 10 mg 05/14/21 21:00 05/14/21 21:22 Lisinopril 10 Mg Tab PO 10 mg HS SAMY Administration Intake and Output 05/14/21 05/15/21 05/15/21 22:59 06:59 14:59 Other: Voiding Method Toilet # Voids 1 3 Weight 66.678 kg 05/14/21 18:30 05/14/21 18:30
[2021-05-15 15:00] VITALS: BP 138/58; PULSE 66; RESP 16; TEMP 98.2
--- NOTE | 2021-05-15 15:20 | P.DS ---
Providers Date of admission: 05/14/21 20:55 Attending physician: Brianne Rendon Consults: 05/14/21 20:55 Consult Physician Urgent Consulting Provider: [facility] Consult Reason/Comments: Near-syncope, high blood pressure Do you want consulting provider notified?: Yes Primary care physician: Eev Feng Hospital Course: Please refer to my history of present illness for further details Plan - Discharge Summary Discharge Rx Participant: Yes New Discharge Prescriptions: Continue Temazepam 30 mg PO HS PRN PRN Reason: Insomnia Glucosam/Paul-Msm1/C/Juanito/Bosw [Glucosamine-Chondroitin Tablet] 1 tab PO DAILY Calcium Carbonate/Vitamin D3 [Calcium 600-Vit D3 10 mcg (400 Iu)] 1 tab PO DAILY Vit C/E/Zn/Coppr/Lutein/Zeaxan [Preservision Areds 2 Softgel] 1 cap PO DAILY Multivit-Min/FA/Lycopen/Lutein [Centrum Silver Tablet] 1 tab PO DAILY Cyanocobalamin (Vitamin B-12) [Vitamin B-12] 1,000 mcg PO DAILY Atorvastatin [Lipitor] 20 mg PO HS Aspirin 81 mg PO DAILY Ascorbic Acid [Vitamin C] 500 mg PO DAILY Turmeric Root Extract [Turmeric] 500 mg PO DAILY Changed lisinopriL [Zestril] 5 mg PO BID #0 Discharge Medication List Atorvastatin [Lipitor] 20 mg PO HS 03/29/18 [History] Calcium Carbonate/Vitamin D3 [Calcium 600-Vit D3 10 mcg (400 Iu)] 1 tab PO DAILY 03/29/18 [History] Cyanocobalamin (Vitamin B-12) [Vitamin B-12] 1,000 mcg PO DAILY 03/29/18 [History] Glucosam/Paul-Msm1/C/Juanito/Bosw [Glucosamine-Chondroitin Tablet] 1 tab PO DAILY 03/29/18 [History] Multivit-Min/FA/Lycopen/Lutein [Centrum Silver Tablet] 1 tab PO DAILY 03/29/18 [History] Temazepam 30 mg PO HS PRN 03/29/18 [History] Vit C/E/Zn/Coppr/Lutein/Zeaxan [Preservision Areds 2 Softgel] 1 cap PO DAILY 03/29/18 [History] Aspirin 81 mg PO DAILY 09/26/19 [History] Ascorbic Acid [Vitamin C] 500 mg PO DAILY 12/24/20 [History] Turmeric Root Extract [Turmeric] 500 mg PO DAILY 05/14/21 [History] lisinopriL [Zestril] 5 mg PO BID #0 05/15/21 [Rx] Follow up Appointment(s)/Referral(s): Angela Chairez MD [STAFF PHYSICIAN] - 1 Week Eve Feng DO [Primary Care Provider] - 3 Days Activity/Diet/Wound Care/Special Instructions: take 5 mg of Lisinopril at night and 5 mg in the morning continue with a total of 10mg a day follow up with cardiology as scheduled on May 21 and follow up with pcp with in the next few days Discharge Disposition: HOME SELF-CARE
--- NOTE | 2021-05-15 15:20 | P.HPIM ---
History of Present Illness Patient is a pleasant 80-year-old female came in because of dizziness and near syncopal episode. Patient was seen in the PCPs office and found to have blood pressure of 4 around 200 systolic because of which patient the was given cl onidine patient did the clonidine after which her blood pressure has come down went home and felt dizzy nausea today and vomited. Patient was unsure whether she passed out. Patient denied any seizure-like activity. Tongue biting. Patient is bit hyponatremic denied any diarrhea may be bit dehydrated as well. Patient was receiving IV fluids since last night. Cariology valid the patient therefore is recommending either inpatient or outpatient renal artery duplex. 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 Patient will be discharged today. Patient was on not telemetry without any significant abnormality his cardiac enzymes are -1 time patient doesn't have any chest pain at this time. REVIEW OF SYSTEMS: CONSTITUTIONAL: No fever, no malaise, no fatigue. HEENT: No recent visual problems or hearing problems. Denied any sore throat. CARDIOVASCULAR: No chest pain, orthopnea, PND, no palpitations, no syncope. PULMONARY: No shortness of breath, no cough, no hemoptysis. GASTROINTESTINAL: No diarrhea, no nausea, no vomiting, no abdominal pain. NEUROLOGICAL: No headaches, no weakness, no numbness. HEMATOLOGICAL: Denies any bleeding or petechiae. GENITOURINARY: Denies any burning micturition, frequency, or urgency. MUSCULOSKELETAL/RHEUMATOLOGICAL: Denies any joint pain, swelling, or any muscle pain. ENDOCRINE: Denies any polyuria or polydipsia. The rest of the 14-point review of systems is negative. PHYSICAL EXAMINATION: GENERAL: The patient is alert and oriented x3, not in any acute distress. Well developed, well nourished. HEENT: Pupils are round and equally reacting to light. EOMI. No scleral icterus. No conjunctival pallor. Normocephalic, atraumatic. No pharyngeal erythema. No thyromegaly. CARDIOVASCULAR: S1 and S2 present. No murmurs, rubs, or gallops. PULMONARY: Chest is clear to auscultation, no wheezing or crackles. ABDOMEN: Soft, nontender, nondistended, normoactive bowel sounds. No palpable organomegaly. MUSCULOSKELETAL: No joint swelling or deformity. EXTREMITIES: No cyanosis, clubbing, or pedal edema. NEUROLOGICAL: Gross neurological examination did not reveal any focal deficits. SKIN: No rashes. Assessment and plan -Near-syncope: Possibly secondary to hypertension: Clonidine patient may have a competent of hypovolemic hyponatremia and dehydration patient received IV fluids patient will be switched back to home dose of lisinopril. Patient appears to have been taking lisinopril 10 mg daily as per the documentation here. Cardiology recommended cutting it down to 5 mg twice a day. -Mild acute renal failure secondary to prerenal azotemia and dehydration -Hypovolemic hyponatremia received IV fluids overnight -Peripheral neuropathy -Dyslipidemia Patient will be discharged today to follow up with the primary care physician and cardiology as an outpatient Past Medical History Past Medical History: Hyperlipidemia, Hypertension Additional Past Medical History / Comment(s): She also has a history of Paget's disease of the bone, inner ear problems, and macular degeneration. 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 She has had cautery of the cervix on 2 occasions, most recently in 2013 for uncertain reasons. History of Any Multi-Drug Resistant Organisms: None Reported Past Surgical History: Bowel Resection, Joint Replacement Additional Past Surgical History / Comment(s): She also had a colonoscopy in 2017 and she has had multiple colonoscopies before this. She had ear surgery at age 23. Past Anesthesia/Blood Transfusion Reactions: No Reported Reaction Past Psychological History: No Psychological Hx Reported Smoking Status: Former smoker Past Alcohol Use History: Rare Additional Past Alcohol Use History / Comment(s): Quit smoking in her 20s. Past Drug Use History: None Reported - Past Family History Brother(s) Family Medical History: Cancer, Diabetes Mellitus Additional Family Medical History / Comment(s): Prostate cancer. Father Family Medical History: Myocardial Infarction ([place]) Mother Family Medical History: Diabetes Mellitus Sister(s) Family Medical History: Cancer Additional Family Medical History / Comment(s): Bowel and liver cancer. Another sister had lung cancer and breast cancer. Medications and Allergies Home Medications Medication Instructions Recorded Confirmed Type Atorvastatin [Lipitor] 20 mg PO HS 03/29/18 05/14/21 History Calcium Carbonate/Vitamin D3 1 tab PO DAILY 03/29/18 05/14/21 History [Calcium 600-Vit D3 10 mcg (400 Iu)] Cyanocobalamin (Vitamin B-12) 1,000 mcg PO DAILY 03/29/18 05/14/21 History [Vitamin B-12] Glucosam/Paul-Msm1/C/Juanito/Bosw 1 tab PO DAILY 03/29/18 05/14/21 History [Glucosamine-Chondroitin Tablet] Multivit-Min/FA/Lycopen/Lutein 1 tab PO DAILY 03/29/18 05/14/21 History [Centrum Silver Tablet] Temazepam 30 mg PO HS PRN 03/29/18 05/14/21 History Vit C/E/Zn/Coppr/Lutein/Zeaxan 1 cap PO DAILY 03/29/18 05/14/21 History [Preservision Areds 2 Softgel] Aspirin 81 mg PO DAILY 09/26/19 05/14/21 History Ascorbic Acid [Vitamin C] 500 mg PO DAILY 12/24/20 05/14/21 History Turmeric Root Extract [Turmeric] 500 mg PO DAILY 05/14/21 05/14/21 History lisinopriL [Zestril] 5 mg PO BID #0 05/15/21 05/14/21 Rx Allergies Allergy/AdvReac Type Severity Reaction Status Date / Time Penicillins Allergy Rash/Hives Verified 05/14/21 19:49 Sulfa (Sulfonamide Allergy Rash/Hives Verified 05/14/21 19:49 Antibiotics) Physical Exam Vitals: Vital Signs Temp Pulse Pulse Pulse Pulse Pulse Resp 05/15/21 14:59 98.2 F 66 16 05/15/21 12:02 97 62 18 05/15/21 08:57 70 77 70 05/15/21 07:00 97.8 F 67 17 05/15/21 02:25 97.9 F 66 16 05/15/21 02:00 69 14 05/14/21 21:48 97.7 F 69 14 05/14/21 21:32 68 18 05/14/21 19:00 61 18 05/14/21 18:06 98.0 F 66 18 BP BP BP BP BP Pulse Ox 05/15/21 14:59 138/58 96 05/15/21 12:02 153/64 05/15/21 08:57 171/66 166/68 166/69 05/15/21 07:00 130/63 98 05/15/21 02:25 120/58 95 05/15/21 02:00 05/14/21 21:48 145/59 98 05/14/21 21:32 148/65 98 05/14/21 19:00 143/61 05/14/21 18:06 161/73 98 Intake and Output 05/15/21 05/15/21 05/15/21 06:59 14:59 22:59 Other: Voiding Method Toilet # Voids 3 3 Results CBC & Chem 7: 05/14/21 18:30 05/14/21 18:30 Labs: Abnormal Lab Results - Last 24 Hours (Table) 05/14/21 05/14/21 05/14/21 Range/Units 18:30 18:30 18:30 Neutrophils # 8.3 H (1.3-7.7) k/uL Lymphocytes # 0.6 L (1.0-4.8) k/uL APTT 20.6 L (22.0-30.0) sec Sodium (137-145) mmol/L BUN (7-17) mg/dL Glucose (74-99) mg/dL Urine Ketones 1+ H (Negative) Ur Leukocyte Esterase Trace H (Negative) Amorphous Sediment Rare H (None) /hpf Hyaline Casts 3 H (0-2) /lpf Urine Mucus Rare H (None) /hpf 05/14/21 Range/Units 18:30 Neutrophils # (1.3-7.7) k/uL Lymphocytes # (1.0-4.8) k/uL APTT (22.0-30.0) sec Sodium 132 L (137-145) mmol/L BUN 22 H (7-17) mg/dL Glucose 120 H (74-99) mg/dL Urine Ketones (Negative) Ur Leukocyte Esterase (Negative) Amorphous Sediment (None) /hpf Hyaline Casts (0-2) /lpf Urine Mucus (None) /hpf
== END 2021-05-15 16:17 | disposition home or self-care (01) ==
LOC: EC 18:04 → 6NMEDSUR 20:55
PROVIDERS: ADMIT Hospitalist; ATTEND Hospitalist
DX: R55 Syncope and collapse (principal); N17.9 Acute kidney failure, unspecified; E87.1 Hypo-osmolality and hyponatremia; E86.0 Dehydration; E86.1 Hypovolemia; G62.9 Polyneuropathy, unspecified; R53.1 Weakness; R11.2 Nausea with vomiting, unspecified; E78.5 Hyperlipidemia, unspecified; I10 Essential (primary) hypertension; Z87.891 Personal history of nicotine dependence; M88.9 Osteitis deformans of unspecified bone; H35.30 Unspecified macular degeneration; R42 Dizziness and giddiness; R20.0 Anesthesia of skin; R20.2 Paresthesia of skin; M25.569 Pain in unspecified knee; R79.89 Other specified abnormal findings of blood chemistry; Z90.49 Acquired absence of other specified parts of digestive tract; Z79.899 Other long term (current) drug therapy; Z79.82 Long term (current) use of aspirin; Z88.0 Allergy status to penicillin; Z88.2 Allergy status to sulfonamides; Z83.3 Family history of diabetes mellitus; Z82.49 Family history of ischemic heart disease and other diseases of the circulatory system; Z80.42 Family history of malignant neoplasm of prostate; Z80.0 Family history of malignant neoplasm of digestive organs; Z80.1 Family history of malignant neoplasm of trachea, bronchus and lung; Z80.3 Family history of malignant neoplasm of breast
CPT/HCPCS: 99285; 36415; 93005; 80053; 83605; 83735; 84484; 85025; 85610; 85730; 81001; 71046; G0378 ×2

== ENCOUNTER 2021-09-14 11:09 | Inpatient (IN) | payer MEDICARE, BC ==
[2021-09-14] MEDS ORDERED: PROCHLORPERAZINE INJ 10 MG/2 ML VIAL IVP STA (11:30)
[2021-09-14] MEDS ORDERED: SODIUM CHLORIDE 0.9% 500 ML 500 ML IV STA (11:30)
[2021-09-14 11:38] LABS: Glucose,Whole Blood 131 mg/dL (75-99)
[2021-09-14 11:51] LABS: Basophils % (A) 0 %; Eosinophils # (A) 0.1 k/uL (0-0.7); Eosinophils % (A) 1 %; HCT 41.7 % (34.0-46.0); HGB 14.5 gm/dL (11.4-16.0); Lymphocytes # (A) 0.9 k/uL (1.0-4.8); Lymphocytes % (A) 9 %; MCHC 34.9 g/dL (31.0-37.0); MCV 91.7 fL (80.0-100.0); Mean Platelet Volume 7.1; Monocytes # (A) 0.7 k/uL (0-1.0); Monocytes % (A) 7 %; Neutrophils # (A) 7.6 k/uL (1.3-7.7); Neutrophils % (A) 81 %; Platelet Count 226 k/uL (150-450); RBC 4.55 m/uL (3.80-5.40); WBC 9.4 k/uL (3.8-10.6)
--- NOTE | 2021-09-14 11:54 | XR ---
EXAMINATION TYPE: XR chest 2V DATE OF EXAM: 09/14/2021 COMPARISON: 05/14/2021 INDICATION: Syncope weakness nausea TECHNIQUE: Frontal and lateral views of the chest are obtained. FINDINGS: The heart size is normal. The pulmonary vasculature is normal. The lungs are clear. IMPRESSION: 1. No acute pulmonary process.
[2021-09-14 11:58] LABS: Albumin 3.9 g/dL (3.5-5.0); Calcium 8.9 mg/dL (8.4-10.2); Magnesium 2.1 mg/dL (1.6-2.3); Potassium 4.4 mmol/L (3.5-5.1); Total Bilirubin 0.5 mg/dL (0.2-1.3); Total Protein 6.4 g/dL (6.3-8.2)
[2021-09-14] MEDS ORDERED: ACETAMINOPHEN TAB 325 MG TAB PO PRN (13:32)
[2021-09-14] MEDS ORDERED: ONDANSETRON 4 MG/2 ML VIAL IVP PRN (13:32)
[2021-09-14] MEDS ORDERED: NALOXONE 0.4 MG/ML 1 ML VIAL IV PRN (13:32)
--- NOTE | 2021-09-14 13:32 | ED ---
Dizziness HPI - General Chief Complaint: Syncope Stated Complaint: Syncope Time Seen by Provider: 09/14/21 11:10 Source: patient, RN notes reviewed Mode of arrival: EMS Limitations: no limitations - History of Present Illness Initial Comments: This 80-year-old female brought in by EMS today because of syncopal episode 2 in [employer] sitting down when this occurred. She was very nauseated upon arrival this wasn't in spite of having Zofran given earlier. No chest pain fevers chills sweats she states she had coffee and a muffin this morning. She has had episodes similar to this in the past. No headache no blurry vision she complained of no palpitations today but reports that she had palpitations last week. Patient does report that she does get intermittent problems with her legs she is scheduled for a venous Doppler eczema. She does report occasionally getting bluish color scan to her legs she also reports being tired today was energy levels. Also is had a decreased appetite. No focal deficits no other complaints or modifying factors at this time MD Complaint: dizziness, lightheadedness, other - Related Data Home Medications Medication Instructions Recorded Confirmed Atorvastatin [Lipitor] 20 mg PO HS 03/29/18 09/14/21 Cyanocobalamin (Vitamin B-12) 1,000 mcg PO DAILY 03/29/18 09/14/21 [Vitamin B-12] Multivit-Min/FA/Lycopen/Lutein 1 tab PO DAILY 03/29/18 09/14/21 [Centrum Silver Tablet] Vit C/E/Zn/Coppr/Lutein/Zeaxan 1 cap PO DAILY 03/29/18 09/14/21 [Preservision Areds 2 Softgel] Aspirin 81 mg PO DAILY 09/26/19 09/14/21 Ascorbic Acid [Vitamin C] 500 mg PO DAILY 12/24/20 09/14/21 Turmeric Root Extract [Turmeric] 500 mg PO DAILY 05/14/21 09/14/21 Citracal Slow Release 1 cap PO DAILY 09/14/21 09/14/21 Cranberry Fruit Extract [Cranberry] 500 mg PO DAILY 09/14/21 09/14/21 Ferrous Sulfate [Feosol] 325 mg PO Q48H 09/14/21 09/14/21 Glucosamine Sulfate 1,000 mg PO DAILY 09/14/21 09/14/21 Magnesium 250 mg PO DAILY 09/14/21 09/14/21 Temazepam [Restoril] 15 mg PO HS PRN 09/14/21 09/14/21 amLODIPine BESYLATE 5 mg PO DAILY 09/14/21 09/14/21 Allergies Allergy/AdvReac Type Severity Reaction Status Date / Time Penicillins Allergy Rash/Hives Verified 09/14/21 12:31 Sulfa (Sulfonamide Allergy Rash/Hives Verified 09/14/21 12:31 Antibiotics) Review of Systems ROS Statement: Those systems with pertinent positive or pertinent negative responses have been documented in the HPI. ROS Other: All systems not noted in ROS Statement are negative. Past Medical History Past Medical History: Hyperlipidemia, Hypertension Additional Past Medical History / Comment(s): She also has a history of Paget's disease of the bone, inner ear problems, and macular degeneration. PAST HELP AID HISTORY: She has no history of STDs. She has had cautery of the cervix on 2 occasions, most recently in 2013 for uncertain reasons. History of Any Multi-Drug Resistant Organisms: None Reported Past Surgical History: Bowel Resection, Joint Replacement Additional Past Surgical History / Comment(s): She also had a colonoscopy in 2017 and she has had multiple colonoscopies before this. She had ear surgery at age 23. Past Anesthesia/Blood Transfusion Reactions: No Reported Reaction Past Psychological History: No Psychological Hx Reported Smoking Status: Former smoker Past Alcohol Use History: Rare Past Drug Use History: None Reported - Past Family History Brother(s) Family Medical History: Cancer, Diabetes Mellitus Additional Family Medical History / Comment(s): Prostate cancer. Father Family Medical History: Myocardial Infarction ([place]) Mother Family Medical History: Diabetes Mellitus Sister(s) Family Medical History: Cancer Additional Family Medical History / Comment(s): Bowel and liver cancer. Another sister had lung cancer and breast cancer. General Exam - General Exam Comments Initial Comments: This is a well-developed asthenic appearing female who is awake alert oriented 3 Limitations: no limitations General appearance: alert, in no apparent distress Head exam: Present: atraumatic, normocephalic, normal inspection Eye exam: Present: normal appearance, PERRL, EOMI. Absent: scleral icterus, conjunctival injection, periorbital swelling ENT exam: Present: mucous membranes dry Neck exam: Present: normal inspection, full ROM, other (No stridor JVD or bruits). Absent: tenderness, meningismus, lymphadenopathy Respiratory exam: Present: normal lung sounds bilaterally. Absent: respiratory distress, wheezes, rales, rhonchi, stridor Cardiovascular Exam: Present: regular rate, normal rhythm, normal heart sounds. Absent: systolic murmur, diastolic murmur, rubs, gallop, clicks GI/Abdominal exam: Present: soft, normal bowel sounds. Absent: distended, tenderness, guarding, rebound, rigid, bruit, pulsatile mass Extremities exam: Present: normal inspection, full ROM, normal capillary refill. Absent: tenderness, pedal edema, joint swelling, calf tenderness Back exam: Present: normal inspection Neurological exam: Present: alert, oriented X3, CN II-XII intact Psychiatric exam: Present: normal affect, normal mood Skin exam: Present: warm, dry, intact, normal color. Absent: rash Course Vital Signs 09/14/21 09/14/21 11:11 12:20 Temperature 97.4 F L 97.4 F L Pulse Rate 64 73 Respiratory 16 16 Rate Blood Pressure 175/76 109/82 O2 Sat by Pulse 99 97 Oximetry Medical Decision Making - Medical Decision Making I did discuss findings with the patient family due to the circumstances the patient will be admitted for evaluation by cardiology. I did discuss case with Dr. Aguilar. - Lab Data Result diagrams: 09/14/21 11:30 09/14/21 11:30 Lab Results 09/14/21 09/14/21 09/14/21 Range/Units 11:30 11:30 11:30 WBC 9.4 (3.8-10.6) k/uL RBC 4.55 (3.80-5.40) m/uL Hgb 14.5 (11.4-16.0) gm/dL Hct 41.7 (34.0-46.0) % MCV 91.7 (80.0-100.0) fL MCH 32.0 (25.0-35.0) pg MCHC 34.9 (31.0-37.0) g/dL RDW 13.0 (11.5-15.5) % Plt Count 226 (150-450) k/uL MPV 7.1 Neutrophils % 81 % Lymphocytes % 9 % Monocytes % 7 % Eosinophils % 1 % Basophils % 0 % Neutrophils # 7.6 (1.3-7.7) k/uL Lymphocytes # 0.9 L (1.0-4.8) k/uL Monocytes # 0.7 (0-1.0) k/uL Eosinophils # 0.1 (0-0.7) k/uL Basophils # 0.0 (0-0.2) k/uL D-Dimer 0.51 (<0.60) mg/L FEU Sodium 131 L (137-145) mmol/L Potassium 4.4 (3.5-5.1) mmol/L Chloride 101 (98-107) mmol/L Carbon Dioxide 22 (22-30) mmol/L Anion Gap 8 mmol/L BUN 19 H (7-17) mg/dL Creatinine 0.91 (0.52-1.04) mg/dL Est GFR (CKD-EPI)AfAm 68 (>60 ml/min/1.73 sqM) Est GFR (CKD-EPI)NonAf 59 (>60 ml/min/1.73 sqM) Glucose 137 H (74-99) mg/dL POC Glucose (mg/dL) (75-99) mg/dL POC Glu [employer]ist ID Plasma Lactic Acid Oli (0.7-2.0) mmol/L Calcium 8.9 (8.4-10.2) mg/dL Magnesium 2.1 (1.6-2.3) mg/dL Total Bilirubin 0.5 (0.2-1.3) mg/dL AST 30 (14-36) U/L ALT 18 (4-34) U/L Alkaline Phosphatase 56 (38-126) U/L Creatine Kinase 46 (30-135) U/L Troponin I (0.000-0.034) ng/mL NT-Pro-B Natriuret Pep pg/mL Total Protein 6.4 (6.3-8.2) g/dL Albumin 3.9 (3.5-5.0) g/dL 09/14/21 09/14/21 09/14/21 Range/Units 11:30 11:30 11:30 WBC (3.8-10.6) k/uL RBC (3.80-5.40) m/uL Hgb (11.4-16.0) gm/dL Hct (34.0-46.0) % MCV (80.0-100.0) fL MCH (25.0-35.0) pg MCHC (31.0-37.0) g/dL RDW (11.5-15.5) % Plt Count (150-450) k/uL MPV Neutrophils % % Lymphocytes % % Monocytes % % Eosinophils % % Basophils % % Neutrophils # (1.3-7.7) k/uL Lymphocytes # (1.0-4.8) k/uL Monocytes # (0-1.0) k/uL Eosinophils # (0-0.7) k/uL Basophils # (0-0.2) k/uL D-Dimer (<0.60) mg/L FEU Sodium (137-145) mmol/L Potassium (3.5-5.1) mmol/L Chloride (98-107) mmol/L Carbon Dioxide (22-30) mmol/L Anion Gap mmol/L BUN (7-17) mg/dL Creatinine (0.52-1.04) mg/dL Est GFR (CKD-EPI)AfAm (>60 ml/min/1.73 sqM) Est GFR (CKD-EPI)NonAf (>60 ml/min/1.73 sqM) Glucose (74-99) mg/dL POC Glucose (mg/dL) (75-99) mg/dL POC Glu [employer] Economist ID Plasma Lactic Acid Oli 1.4 (0.7-2.0) mmol/L Calcium (8.4-10.2) mg/dL Magnesium (1.6-2.3) mg/dL Total Bilirubin (0.2-1.3) mg/dL AST (14-36) U/L ALT (4-34) U/L Alkaline Phosphatase (38-126) U/L Creatine Kinase (30-135) U/L Troponin I <0.012 (0.000-0.034) ng/mL NT-Pro-B Natriuret Pep 177 pg/mL Total Protein (6.3-8.2) g/dL Albumin (3.5-5.0) g/dL 09/14/21 Range/Units 11:37 WBC (3.8-10.6) k/uL RBC (3.80-5.40) m/uL Hgb (11.4-16.0) gm/dL Hct (34.0-46.0) % MCV (80.0-100.0) fL MCH (25.0-35.0) pg MCHC (31.0-37.0) g/dL RDW (11.5-15.5) % Plt Count (150-450) k/uL MPV Neutrophils % % Lymphocytes % % Monocytes % % Eosinophils % % Basophils % % Neutrophils # (1.3-7.7) k/uL Lymphocytes # (1.0-4.8) k/uL Monocytes # (0-1.0) k/uL Eosinophils # (0-0.7) k/uL Basophils # (0-0.2) k/uL D-Dimer (<0.60) mg/L FEU Sodium (137-145) mmol/L Potassium (3.5-5.1) mmol/L Chloride (98-107) mmol/L Carbon Dioxide (22-30) mmol/L Anion Gap mmol/L BUN (7-17) mg/dL Creatinine (0.52-1.04) mg/dL Est GFR (CKD-EPI)AfAm (>60 ml/min/1.73 sqM) Est GFR (CKD-EPI)NonAf (>60 ml/min/1.73 sqM) Glucose (74-99) mg/dL POC Glucose (mg/dL) 131 H (75-99) mg/dL POC Glu Energy Economist ID Wendie Bliss Plasma Lactic Acid Oli (0.7-2.0) mmol/L Calcium (8.4-10.2) mg/dL Magnesium (1.6-2.3) mg/dL Total Bilirubin (0.2-1.3) mg/dL AST (14-36) U/L ALT (4-34) U/L Alkaline Phosphatase (38-126) U/L Creatine Kinase (30-135) U/L Troponin I (0.000-0.034) ng/mL NT-Pro-B Natriuret Pep pg/mL Total Protein (6.3-8.2) g/dL Albumin (3.5-5.0) g/dL - EKG Data -: EKG Interpreted by Ny EKG shows normal: sinus rhythm EKG Comments: 62/rate normal sinus rhythm LA interval 190 QRS 70 QT/QTC 440/446 possible left atrial enlargement nonspecific septal configuration - Radiology Data Radiology results: report reviewed (Imaging reviewed no evidence of acute findings at this time.), image reviewed Disposition Clinical Impression: Syncope and collapse, Palpitations Disposition: ADMITTED IP TO THIS [facility] Condition: Fair Referrals: Eve Feng DO [Primary Care Provider] - 1-2 days
[2021-09-14] MEDS ORDERED: FERROUS SULFATE 325 MG TAB PO SCH (13:45)
[2021-09-14 15:49] LABS: Appearance,Urine Clear (Clear); Bilirubin,Urine Negative (Negative); Blood,Urine Negative (Negative); Color,Urine Light Yellow; Glucose,Urine (UA) Negative (Negative); Ketones,Urine 1+ (Negative); Leukocyte Esterase,Urine Negative (Negative); Nitrite,Urine Negative (Negative); PH, Urine 6.5 (5.0-8.0); Protein,Urine Negative (Negative); Specific Gravity,Urine 1.009 (1.001-1.035); Urobilinogen,Urine <2.0 mg/dL (<2.0)
[2021-09-14] MEDS: SODIUM CHLORIDE 0.9% 1,000 ML IV SCH ×3 (16:29→23:30)
[2021-09-14] MEDS: ATORVASTATIN 20 MG TAB PO SCH (19:50)
[2021-09-14] MEDS: TEMAZEPAM 15 MG CAP PO PRN (19:54)
--- NOTE | 2021-09-14 23:26 | P.HPIM ---
History of Present Illness H&P Date: 09/14/21 Chief Complaint: Syncope Patient is a 80-year-old female with a known history of hypertension, hyperlipidemia, history of palpitations and was seen by cardiology, Paget's dise ase of the bone and inner ear problems and recent history of COVID-19 infection in January 2021 and previous history of smoking presents to ER due to syncopal episode x2 when she was sitting on the chair at the [employer]. Patient was standing for the prior, 30 minutes prior to sitting in the chair. Patient could not recollect what exactly happened prior to the episode. Denied any palpitations. No dizziness or blurry vision. No focal weakness. No fever no chills. No chest pain or shortness of breath. Patient states that she has not been feeling well for the past 2 days. She was seen by neurology and had EMG couple of days ago for possible neuromuscular disease. Patient is also on follow-up with nephrology due to chronic kidney disease and had renal artery angiogram was done previously. Supposed to get bilateral lower extremity arterial duplex scan. Patient is also on follow-up with ENT due to lesion on the mastoid process. She was recently started Zoloft for anxiety issues by her primary care physician. She took the dose on and did not like the feeling and skip her dose on Wednesday and she again took on Wednesday. On admission chest x-ray showed no acute pulmonary process. EKG showed normal sinus rhythm. According to family patient has been having all the symptoms getting worse since Covid 19 infection in January 2021. Laboratory showed WBC 9.4 hemoglobin 14.5 and platelets 226 Sodium 131 potassium 4.4 chloride 101 BUN 19 and creatinine 0.9 blood sugar is 137 and liver enzymes not elevated troponin x1 - and proBNP 177 Review of Systems Constitutional: Patient denies any fever or chills . No generalized weakness or weight loss. Abdomen: Patient denied nausea vomiting and diarrhea and abdominal pain. Cardiovascular: Patient denies any chest pain or short of breath no palpitations. Respiratory: patient denied any cough or sputum production. No shortness of breath Neurologic: Patient denied any numbness or tingling headache. Musculoskeletal: Patient denies any complaints of joint swelling or deformity. Skin: Negative Psychiatric: Negative Endocrine: No heat or cold intolerance. No recent weight gain. Genitourinary: No dysuria or hematuria. All other 14 point ROS negative except the above Past Medical History Past Medical History: Hyperlipidemia, Hypertension, Renal Disease Additional Past Medical History / Comment(s): She also has a history of Paget's disease of the bone, inner ear problems, and macular degeneration. PAST DUMPER HISTORY: She has no history of STDs. She has had cautery of the cervix on 2 occasions, most recently in 2013 for uncertain reasons. Covid January. Left renal atrophy History of Any Multi-Drug Resistant Organisms: None Reported Past Surgical History: Bowel Resection, Joint Replacement Additional Past Surgical History / Comment(s): She also had a colonoscopy in 2017 and she has had multiple colonoscopies before this. She had ear surgery at age 23. Past Anesthesia/Blood Transfusion Reactions: No Reported Reaction Past Psychological History: No Psychological Hx Reported Smoking Status: Former smoker Past Alcohol Use History: Rare Additional Past Alcohol Use History / Comment(s): Quit smoking in her 20s. Past Drug Use History: None Reported - Past Family History Brother(s) Family Medical History: Cancer, Diabetes Mellitus Additional Family Medical History / Comment(s): Prostate cancer. Father Family Medical History: Myocardial Infarction ([place]) Mother Family Medical History: Diabetes Mellitus Sister(s) Family Medical History: Cancer Additional Family Medical History / Comment(s): Bowel and liver cancer. Another sister had lung cancer and breast cancer. Medications and Allergies Home Medications Medication Instructions Recorded Confirmed Type Atorvastatin [Lipitor] 20 mg PO HS 03/29/18 09/14/21 History Cyanocobalamin (Vitamin B-12) 1,000 mcg PO DAILY 03/29/18 09/14/21 History [Vitamin B-12] Multivit-Min/FA/Lycopen/Lutein 1 tab PO DAILY 03/29/18 09/14/21 History [Centrum Silver Tablet] Vit C/E/Zn/Coppr/Lutein/Zeaxan 1 cap PO DAILY 03/29/18 09/14/21 History [Preservision Areds 2 Softgel] Aspirin 81 mg PO DAILY 09/26/19 09/14/21 History Ascorbic Acid [Vitamin C] 500 mg PO DAILY 12/24/20 09/14/21 History Turmeric Root Extract [Turmeric] 500 mg PO DAILY 05/14/21 09/14/21 History Citracal Slow Release 1 cap PO DAILY 09/14/21 09/14/21 History Cranberry Fruit Extract [Cranberry] 500 mg PO DAILY 09/14/21 09/14/21 History Ferrous Sulfate [Feosol] 325 mg PO Q48H 09/14/21 09/14/21 History Glucosamine Sulfate 1,000 mg PO DAILY 09/14/21 09/14/21 History Magnesium 250 mg PO DAILY 09/14/21 09/14/21 History Temazepam [Restoril] 15 mg PO HS PRN 09/14/21 09/14/21 History amLODIPine BESYLATE 5 mg PO DAILY 09/14/21 09/14/21 History Allergies Allergy/AdvReac Type Severity Reaction Status Date / Time Penicillins Allergy Rash/Hives Verified 09/14/21 12:31 Sulfa (Sulfonamide Allergy Rash/Hives Verified 09/14/21 12:31 Antibiotics) Physical Exam Vitals: Vital Signs Temp Pulse Pulse Resp BP BP Pulse Ox 09/14/21 18:58 98.4 F 80 18 138/68 97 09/14/21 18:02 97.9 F 19 149/67 95 09/14/21 17:12 87 16 153/63 95 09/14/21 12:20 97.4 F L 73 16 109/82 97 09/14/21 11:11 97.4 F L 64 16 175/76 99 Intake and Output 09/14/21 09/14/21 09/14/21 06:59 14:59 22:59 Other: Weight 63.503 kg PHYSICAL EXAMINATION: Patient is lying in the bed comfortably, no acute distress, awake alert and oriented.. HEENT: Normocephalic. Neck is supple. Pupils reactive. Nostrils clear. Oral cavity is moist. Neck reveals no JVD, carotid bruits, or thyromegaly. CHEST EXAMINATION: Trachea is central. Symmetrical expansion. Lung logan clear to auscultation and percussion. CARDIAC: Normal S1, S2 with no gallops. No murmurs ABDOMEN: Soft. Bowel sounds normal. No organomegaly. No abdominal bruits. Extremities: reveal no edema. No clubbing or cyanosis Neurologically awake, alert, oriented x3 with well-coordinated movements. No focal deficits noted Skin: No rash or skin lesions. Psychiatric: Cooperative. Nonsuicidal Musculoskeletal: No joint swelling or deformity. Normal range of motion. Results CBC & Chem 7: 09/14/21 11:30 09/14/21 11:30 Labs: Abnormal Lab Results - Last 24 Hours (Table) 09/14/21 09/14/21 09/14/21 Range/Units 11:30 11:30 11:37 Lymphocytes # 0.9 L (1.0-4.8) k/uL Sodium 131 L (137-145) mmol/L BUN 19 H (7-17) mg/dL Glucose 137 H (74-99) mg/dL POC Glucose (mg/dL) 131 H (75-99) mg/dL Urine Ketones (Negative) 09/14/21 Range/Units 15:45 Lymphocytes # (1.0-4.8) k/uL Sodium (137-145) mmol/L BUN (7-17) mg/dL Glucose (74-99) mg/dL POC Glucose (mg/dL) (75-99) mg/dL Urine Ketones 1+ H (Negative) Thrombosis Risk Factor Assmnt - DVT/VTE Prophylaxis DVT/VTE Prophylaxis: Pharmacologic Prophylaxis ordered Assessment and Plan Assessment: Acute syncopal episode likely orthostatic hypotension. Rule out cardiac arrhythmia Recently started on Zoloft for anxiety. will hold at this time. Hypovolemic hyponatremia History of palpitations COVID-19 infection January 2021 Hypertension Hyperlipidemia Paget's disease of the bone and inner ear issues Previous history of smoking GI and DVT prophylaxis Heparin subcu. Plan: Patient will be continued on IV hydration with normal saline and orthostatic vitals was ordered. Continue with telemetry monitoring. Cardiology was consulted due to prior history of palpitations. Zoloft is on hold. Cardiology was consulted. Continued home medications and follow-up closely.Discussed with the family in detail at bedside. Time with Patient: Greater than 30
[2021-09-15 06:49] LABS: African American GFR (CKD) 62 (>60 ml/min/1.73 sqM); Anion Gap 3 mmol/L; Blood Urea Nitrogen 16 mg/dL (7-17); Calcium 8.8 mg/dL (8.4-10.2); Carbon Dioxide 29 mmol/L (22-30); Chloride 103 mmol/L (98-107); Glucose 97 mg/dL (74-99); Non-African American GFR(CKD) 54 (>60 ml/min/1.73 sqM); Potassium 4.3 mmol/L (3.5-5.1); Sodium 135 mmol/L (137-145)
--- NOTE | 2021-09-15 08:19 | CT ---
EXAMINATION TYPE: CT brain wo con DATE OF EXAM: 09/15/2021 COMPARISON: None INDICATION: syncope DLP: 1036 mGycm, Automated exposure control for dose reduction was used. CONTRAST: None CT of the brain is performed utilizing 3 mm thick sections through the posterior fossa and 3 mm thick sections through the remaining calvarium. Study is performed within 24 hours of arrival to the hosp [facility]. No abnormal hyperdensity is present to suggest an acute intracranial hemorrhage. No mass lesion is evident. No acute infarcts are evident. Periventricular white matter hypodensity is present, likely on the bas is of chronic white matter ischemic changes. Some subtle hypodensities of the left basal ganglia may be small lacunar infarct of indeterminate age. MRI could be performed for closer evaluation. There is some hypodensity within the internal capsule right basal ganglion. Ventricles and sulci are appropriate for the patient age. Paranasal sinuses and mastoid air cells within the [id number] are clear. There is been a prior rig ht mastoidectomy. IMPRESSIONS: 1. Hypodensity within the internal capsule right basal ganglion and a small lacunar infarct left ba demetri ganglion of indeterminate age. MRI could further evaluate these findings. 2. Chronic appearing periventricular white matter ischemic changes.
[2021-09-15] MEDS ORDERED: NON FORMULARY DRUG (Cranberry Fruit Extract [Cranberry] 500 MG Tablet) PO SCH (09:00)
[2021-09-15] MEDS ORDERED: NON FORMULARY DRUG (Glucosamine Sulfate [Glucosamine Sulfate] 1,000 MG Tablet) PO SCH (09:00)
[2021-09-15] MEDS ORDERED: NON FORMULARY DRUG (Turmeric Root Extract [Turmeric] 500 MG Capsule) PO SCH (09:00)
[2021-09-15] MEDS ORDERED: FAMOTIDINE 20 MG TAB PO SCH (09:00)
[2021-09-15] MEDS ORDERED: CITRACAL SLOW PO SCH (09:00)
--- NOTE | 2021-09-15 09:32 | P.CRDCN ---
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 Patient follows in the office with Dr. Chairez. We have been asked to see the patient in consultation for syncope. Patient examined at the bedside. Patients daughter present. Patient states she has been feeling weak, tired, and just "blah" lately. She reports waking up yesterday and drove herself to [facility]. She denied having any chest pain, pressure, shortness of breath, dizziness or lightheadedness. The patient was sitting in the pew at [employer] when her daughter states she had a blank stare on her face and became unresponsive. The patient states she could hear her daughter talking to her but she was unable to respond. Daughter states she then began having shaking/jerking movements of her upper and lower extremities. They lowered the patient to the floor and she then came to. The patient denies biting her tongue. She does report losing control of her bladder at that time. EMS was called at that time. Apparently the patient was then placed on a stretcher and she had another similar episode where she went unresponsive and was having jerking movements of her upper and lower extremities. The patient denies having any history of seizures. She does report having a syncopal episode earlier this year. She states she is worried event monitor in the past with no findings to account for these episodes. She states she checks her blood pressure at home and it usually runs in the 130s systolic which is good for her as she states previously and has ran even higher than that. She does report seen a neurologist last week at [facility] and is undergoing workup for peripheral neuropathy. EKG reveals sinus mechanism with T-wave inversions in V1-V2. Chest xray negative for acute process CT of the brain: Hypodensity within the internal capsule right basal ganglionic and a small lacunar infarct left basal ganglia of indeterminate age. MRI could further evaluate these findings. Chronic appearing periventricular white matter ischemic changes. Laboratory data: WBC 9.4. Hemoglobin 14.5. Platelet count 226. Sodium 135. Potassium 4.3. BUN 16. Creatinine 0.98. Troponin negative 3. ProBNP 177. TSH 3.590. Current home cardiac medications include atorvastatin 20 mg daily, aspirin 81 mg daily, amlodipine 5 mg daily Most recent echocardiogram obtained in May 2020 revealed ejection fraction 60%. [id number] aortic regurgitation. Mild mitral regurgitation. Mild tr icuspid regurgitation. Cardiac catheterization history: Patient underwent Lexiscan stress test in 2017 which was negative for stress-induced ischemia REVIEW OF SYSTEMS: At the time of my exam: CONSTITUTIONAL: Denies fever or chills. HEENT: Denies blurred vision, vision changes, or eye pain. Denies hemoptysis CARDIOVASCULAR: Denies chest pain. Denies orthopnea. Denies PND. Denies palpitations RESPIRATORY: Denies shortness of breath. GASTROINTESTINAL: Denies abdominal pain. Denies nausea or vomiting. HEMATOLOGIC: Denies bleeding disorders. GENITOURINARY: Denies any blood in urine. SKIN: Denies pruitis. Denies rash. PHYSICAL EXAM: VITAL SIGNS: Reviewed. GENERAL: Well-developed in no acute distress. HEENT: Head is normocephalic. Pupils are equal, round. Sclerae anicteric. Mucous membranes of the mouth are moist. Neck supple. No JVD or thyromegaly LUNGS: Respirations even and unlabored. Lungs essentially clear to auscultation bilaterally. HEART: Regular rate and rhythm. S1 and S2 heard. ABDOMEN: Soft. Nondistended. Nontender. EXTREMITIES: Normal range of motion. No clubbing or cyanosis. Peripheral pulses intact. No lower extremity edema NEUROLOGIC: Awake and alert. Oriented x 3. ASSESSMENT: Syncopal episode, r/o seizure vs cardiac etiology, possible vasovagal Hypertension Hyperlipidemia Left renal artery stenosis with atrophic left kidney History of near syncopal episodes Abnormal CT revealing small lacunar infarct left basal ganglia of indeterminate age Covid 19January 2021 PLAN: Obtain 2D echo to assess cardiac structure and function Continue telemetry monitoring to assess for any cardiac arrhythmias. May consider loop recorder on an outpatient basis Obtain orthostatic blood pressures Consult neurology to rule out seizure activity as etiology for syncopal episode and to evaluate abnormal CT of the brain Further recommendations pending patient's course Nurse practitioner note has been reviewed by physician. Signing provider agrees with the documented findings, assessment, and plan of care. Past Medical History Past Medical History: Hyperlipidemia, Hypertension, Renal Disease Additional Past Medical History / Comment(s): She also has a history of Paget's disease of the bone, inner ear problems, and macular degeneration. 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 She has had cautery of the cervix on 2 occasions, most recently in 2013 for uncertain reasons. Covid January. Left renal atrophy History of Any Multi-Drug Resistant Organisms: None Reported Past Surgical History: Bowel Resection, Joint Replacement Additional Past Surgical History / Comment(s): She also had a colonoscopy in 2017 and she has had multiple colonoscopies before this. She had ear surgery at age 23. Past Anesthesia/Blood Transfusion Reactions: No Reported Reaction Past Psychological History: No Psychological Hx Reported Smoking Status: Former smoker Past Alcohol Use History: Rare Additional Past Alcohol Use History / Comment(s): Quit smoking in her 20s. Past Drug Use History: None Reported - Past Family History Brother(s) Family Medical History: Cancer, Diabetes Mellitus Additional Family Medical History / Comment(s): Prostate cancer. Father Family Medical History: Myocardial Infarction ([place]) Mother Family Medical History: Diabetes Mellitus Sister(s) Family Medical History: Cancer Additional Family Medical History / Comment(s): Bowel and liver cancer. Another sister had lung cancer and breast cancer. Medications and Allergies Home Medications Medication Instructions Recorded Confirmed Type Atorvastatin [Lipitor] 20 mg PO HS 03/29/18 09/14/21 History Cyanocobalamin (Vitamin B-12) 1,000 mcg PO DAILY 03/29/18 09/14/21 History [Vitamin B-12] Multivit-Min/FA/Lycopen/Lutein 1 tab PO DAILY 03/29/18 09/14/21 History [Centrum Silver Tablet] Vit C/E/Zn/Coppr/Lutein/Zeaxan 1 cap PO DAILY 03/29/18 09/14/21 History [Preservision Areds 2 Softgel] Aspirin 81 mg PO DAILY 09/26/19 09/14/21 History Ascorbic Acid [Vitamin C] 500 mg PO DAILY 12/24/20 09/14/21 History Turmeric Root Extract [Turmeric] 500 mg PO DAILY 05/14/21 09/14/21 History Citracal Slow Release 1 cap PO DAILY 09/14/21 09/14/21 History Cranberry Fruit Extract [Cranberry] 500 mg PO DAILY 09/14/21 09/14/21 History Ferrous Sulfate [Feosol] 325 mg PO Q48H 09/14/21 09/14/21 History Glucosamine Sulfate 1,000 mg PO DAILY 09/14/21 09/14/21 History Magnesium 250 mg PO DAILY 09/14/21 09/14/21 History Temazepam [Restoril] 15 mg PO HS PRN 09/14/21 09/14/21 History amLODIPine BESYLATE 5 mg PO DAILY 09/14/21 09/14/21 History Allergies Allergy/AdvReac Type Severity Reaction Status Date / Time Penicillins Allergy Rash/Hives Verified 09/14/21 12:31 Sulfa (Sulfonamide Allergy Rash/Hives Verified 09/14/21 12:31 Antibiotics) Physical Exam Vitals: Vital Signs Temp Pulse Pulse Resp BP BP Pulse Ox 09/15/21 01:11 98.2 F 69 16 134/66 96 09/14/21 23:15 18 09/14/21 20:00 18 09/14/21 18:58 98.4 F 80 18 138/68 97 09/14/21 18:02 97.9 F 19 149/67 95 09/14/21 17:12 87 16 153/63 95 09/14/21 12:20 97.4 F L 73 16 109/82 97 09/14/21 11:11 97.4 F L 64 16 175/76 99 Intake and Output 09/14/21 09/15/21 09/15/21 22:59 06:59 14:59 Other: # Voids 2 2 Results 09/15/21 04:51 09/15/21 04:51 Cardiac Enzymes 09/14/21 09/14/21 09/14/21 Range/Units 11:30 11:30 18:35 AST 30 (14-36) U/L Troponin I <0.012 <0.012 (0.000-0.034) ng/mL 09/15/21 Range/Units 00:15 AST (14-36) U/L Troponin I <0.012 (0.000-0.034) ng/mL CBC 09/14/21 Range/Units 11:30 WBC 9.4 (3.8-10.6) k/uL RBC 4.55 (3.80-5.40) m/uL Hgb 14.5 (11.4-16.0) gm/dL Hct 41.7 (34.0-46.0) % Plt Count 226 (150-450) k/uL Comprehensive Metabolic Panel 09/14/21 09/15/21 Range/Units 11:30 04:51 Sodium 131 L 135 L (137-145) mmol/L Potassium 4.4 4.3 (3.5-5.1) mmol/L Chloride 101 103 (98-107) mmol/L Carbon Dioxide 22 29 (22-30) mmol/L BUN 19 H 16 (7-17) mg/dL Creatinine 0.91 0.98 (0.52-1.04) mg/dL Glucose 137 H 97 (74-99) mg/dL Calcium 8.9 8.8 (8.4-10.2) mg/dL AST 30 (14-36) U/L ALT 18 (4-34) U/L Alkaline Phosphatase 56 (38-126) U/L Total Protein 6.4 (6.3-8.2) g/dL Albumin 3.9 (3.5-5.0) g/dL Current Medications Generic Name Dose Route Start Last Admin Trade Name Freq PRN Reason Stop Dose Admin Acetaminophen 650 mg 09/14/21 13:32 Acetaminophen Tab 325 Mg Tab PO Q6HR PRN Mild Pain or Fever > 100.5 Amlodipine Besylate 5 mg 09/15/21 09:00 Amlodipine 5 Mg Tab PO DAILY [facility] Ascorbic Acid 500 mg 09/15/21 09:00 Ascorbic Acid 500 Mg Tab PO DAILY [facility] Aspirin 81 mg 09/15/21 09:00 Aspirin 81 Mg PO DAILY [facility] Atorvastatin Calcium 20 mg 09/14/21 21:00 09/14/21 19:50 Atorvastatin 20 Mg Tab PO 20 mg HS SAMY Administration Cyanocobalamin 1,000 mcg 09/15/21 09:00 Cyanocobalamin 500 Mcg Tab PO DAILY [facility] Famotidine 20 mg 09/15/21 09:00 Famotidine 20 Mg Tab PO BID [facility] Ferrous Sulfate 325 mg 09/14/21 13:45 09/14/21 16:29 Ferrous Sulfate 325 Mg Tab PO 325 mg Q48H SAMY Administration Sodium Chloride 1,000 mls @ 100 mls/hr 09/14/21 13:45 09/14/21 23:30 Saline 0.9% IV 100 mls/hr .Q10H SAMY Administration Magnesium Oxide 400 mg 09/15/21 09:00 Magnesium Oxide 400 Mg Tab PO DAILY [facility] Multivitamins 1 each 09/15/21 09:00 Multivitamins, Thera 1 Each Tab PO DAILY [facility] Multivitamins/Minerals 1 each 09/15/21 09:00 Vit A,C & U-Gejbjm-Aorfytzc 1 Each Tab PO DAILY [facility] Naloxone HCl 0.2 mg 09/14/21 13:32 Naloxone 0.4 Mg/Ml 1 Ml Vial IV Q2M PRN Opioid Reversal Ondansetron HCl 4 mg 09/14/21 13:32 Ondansetron 4 Mg/2 Ml Vial IVP Q8HR PRN Nausea And Vomiting Temazepam 15 mg 09/14/21 13:35 09/14/21 19:54 Temazepam 15 Mg Cap PO 15 mg HS PRN Administration Insomnia Intake and Output 09/14/21 09/15/21 09/15/21 22:59 06:59 14:59 Other: # Voids 2 2 09/14/21 11:30 09/15/21 04:51
[2021-09-15] MEDS: amLODIPine 5 MG TAB PO SCH (10:14)
[2021-09-15] MEDS: ASCORBIC ACID 500 MG TAB PO SCH (10:14)
[2021-09-15] MEDS: MAGNESIUM OXIDE 400 MG TAB PO SCH (10:15)
[2021-09-15] MEDS: ASPIRIN 81 MG PO SCH (10:15)
[2021-09-15] MEDS: MULTIVITAMINS, THERA 1 EACH TAB PO SCH (10:15)
[2021-09-15] MEDS: VIT A,C & E-LUTEIN-MINERALS 1 EACH TAB PO SCH (10:15)
[2021-09-15] MEDS: CYANOCOBALAMIN 500 MCG TAB PO SCH (10:15)
[2021-09-15] MEDS: SODIUM CHLORIDE 0.9% 1,000 ML IV SCH (10:45)
[2021-09-15 11:08] LABS: Basophils # (A) 0.02 X 10*3/uL (0.00-0.10); Basophils % (A) 0.3 %; Eosinophils # (A) 0.07 X 10*3/uL (0.04-0.35); Eosinophils % (A) 1.1 %; HGB 12.4 g/dL (12.0-15.0); Lymphocytes # (A) 1.08 X 10*3/uL (0.90-5.00); Lymphocytes % (A) 16.6 %; MCH 30.2 pg (27.0-32.0); MCHC 32.6 g/dL (32.0-37.0); MCV 92.7 fL (80.0-97.0); Mean Platelet Volume 9.8 fL (9.5-12.2); Monocytes # (A) 1.05 X 10*3/uL (0.20-1.00); Monocytes % (A) 16.1 %; Neutrophils # (A) 4.27 X 10*3/uL (1.80-7.70); Neutrophils % (A) 65.6 %; Platelet Count 208 X 10*3/uL (140-440); WBC 6.51 X 10*3/uL (4.50-10.00)
--- NOTE | 2021-09-15 11:54 | P.PN ---
Subjective Progress Note Date: 09/15/21 Patient is a 80-year-old female with a known history of hypertension, hyperlipidemia, history of palpitations and was seen by cardiology, Paget's disease of the bone and inner ear problems and recent history of COVID-19 infection in January 2021 and previous history of smoking presents to ER due to syncopal episode x2 when she was sitting on the chair at the [employer]. Patient was standing for the prior, 30 minutes prior to sitting in the chair. Patient could not recollect what exactly happened prior to the episode. Denied any palpitations. No dizziness or blurry vision. No focal weakness. No fever no chills. No chest pain or shortness of breath. Patient states that she has not been feeling well for the past 2 days. She was seen by neurology and had EMG couple of days ago for possible neuromuscular disease. Patient is also on follow-up with nephrology due to chronic kidney disease and had renal artery angiogram was done previously. Supposed to get bilateral lower extremity arterial duplex scan. Patient is also on follow-up with ENT due to lesion on the mastoid process. She was recently started Zoloft for anxiety issues by her primary care physician. She took the dose on and did not like the feeling and skip her dose on Wednesday and she again took on Wednesday. On admission chest x-ray showed no acute pulmonary process. EKG showed normal sinus rhythm. According to family patient has been having all the symptoms getting worse since Covid 19 infection in January 2021. Laboratory showed WBC 9.4 hemoglobin 14.5 and platelets 226 Sodium 131 potassium 4.4 chloride 101 BUN 19 and creatinine 0.9 blood sugar is 137 and liver enzymes not elevated troponin x1 - and proBNP 177 09/15/2021 Patient evaluated today sitting up at the bedside with family. She denies any lightheadedness, dizziness or any further syncopal episodes. Brain CT showed a small left lacunar infarct left basal ganglia of indeterminate age, neurology consult has been placed. She is febrile, heart rate 76, blood pressure 171/68, 98% on room air. Orthostatics were negative, patient was in the 170s lying and sitting, 150's standing. Please continue to check every shift. 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 Her blood counts are unremarkable, sodium 135. ROS Constitutional: Denied any fatigue denied any fever. Cardio vascular: denied any chest pain, palpitations Gastrointestinal denied any nausea vomiting Pulmonary: Denied any shortness of breath cough Neurologic denied any new focal deficits All inpatient medications were reviewed and appropriate changes in these medications as dictated in the interval history and assessment and plan. PHYSICAL EXAMINATION: GENERAL: The patient is alert and oriented x3, not in any acute distress. Well developed, well nourished. HEENT: Pupils are round and equally reacting to light. EOMI. No scleral icterus. No conjunctival pallor. Normocephalic, atraumatic. No pharyngeal erythema. No t hyromegaly. CARDIOVASCULAR: S1 and S2 present. No murmurs, rubs, or gallops. PULMONARY: Chest is clear to auscultation, no wheezing or crackles. ABDOMEN: Soft, nontender, nondistended, normoactive bowel sounds. No palpable organomegaly. MUSCULOSKELETAL: No joint swelling or deformity. EXTREMITIES: No cyanosis, clubbing, or pedal edema. NEUROLOGICAL: Gross neurological examination did not reveal any focal deficits. SKIN: No rashes. Assessment and plan Assessment Acute syncopal episode likely orthostatic hypotension. Rule out cardiac arrhythmia Recently started on Zoloft for anxiety, on hold Hypovolemia hypovolemic History of palpitations COVID-19 infection January 2021 Hypertension Hyperlipidemia Paget's disease of the bone and inner ear issues Previous history of smoking GI and DVT prophylaxis Heparin subcu DVT prophylaxis: subcu heparin Plan: Decrease IV fluids, repeat labs tomorrow Neurology consult is pending Echocardiogram and carotid doppler are pending Orthostatic blood pressures every shift FULL CODE Objective - Vital Signs Vital signs: Vital Signs Temp 98.2 F 09/15/21 01:11 Pulse 69 09/15/21 01:11 Resp 16 09/15/21 01:11 BP 134/66 09/15/21 01:11 Pulse Ox 96 09/15/21 01:11 Intake & Output 09/14/21 09/15/21 09/15/21 18:59 06:59 18:59 Weight 63.503 kg Other: # Voids 2 - Labs CBC & Chem 7: 09/15/21 04:51 09/15/21 04:51 Labs: Abnormal Lab Results - Last 24 Hours (Table) 09/14/21 09/14/21 09/14/21 Range/Units 11:30 11:30 11:37 Lymphocytes # 0.9 L (1.0-4.8) k/uL Sodium 131 L (137-145) mmol/L BUN 19 H (7-17) mg/dL Glucose 137 H (74-99) mg/dL POC Glucose (mg/dL) 131 H (75-99) mg/dL Urine Ketones (Negative) 09/14/21 09/15/21 Range/Units 15:45 04:51 Lymphocytes # (1.0-4.8) k/uL Sodium 135 L (137-145) mmol/L BUN (7-17) mg/dL Glucose (74-99) mg/dL POC Glucose (mg/dL) (75-99) mg/dL Urine Ketones 1+ H (Negative) Assessment and Plan Time with Patient: Greater than 30
[2021-09-15] MEDS: HEPARIN SODIUM,PORCINE/PF 5,000 UNIT/0.5 ML SYRINGE SQ SCH ×2 (13:05→20:42)
--- NOTE | 2021-09-15 13:29 | ECHOF ---
Referral Reason:LV function MEASUREMENTS -------- HEIGHT: 175.3 cm WEIGHT: 63.5 kg BP: 153/73 RVIDd: 2.9 cm (< 3.3) IVSd: 1.2 cm (0.6 - 1.1) LVIDd: 4.0 cm (3.9 - 5.3) LVPWd: 1.1 cm (0.6 - 1.1) IVSs: 1.4 cm LVIDs: 2.6 cm LVPWs: 1.5 cm LA Diam: 2.9 cm (2.7 - 3.8) LAESV Index (A-L): 21.05 ml/m Ao Diam: 2.8 cm (2.0 - 3.7) AV Cusp: 2.1 cm (1.5 - 2.6) MV EXCURSION: 14.382 mm (> 18.000) MV EF SLOPE: 31 mm/s (70 - 150) EPSS: 0.3 cm MV E Remi: 0.83 m/s MV DecT: 307 ms MV A Remi: 1.06 m/s MV E/A Ratio: 0.78 RAP: 5.00 mmHg RVSP: 23.14 mmHg FINDINGS -------- Sinus rhythm. This was a technically adequate study. The left ventricular size is normal. There is borderline concentric left ventricular hypertrophy. Overall left ventricular systolic function is normal with, an EF between 60 - 65 %. The right ventricle is normal in size. Normal LA size by volume 22+/-6 ml/m2. The right atrium is normal in size. Interatrial and interventricular septum intact. There is mild aortic regurgitation. The mitral valve leaflets are mildly thickened. Mild tricuspid regurgitation present. Right ventricular systolic pressure is normal at < 35 mmHg. Trace/mild (physiologic) pulmonic regurgitation. The aortic root size is normal. Normal inferior vena cava with normal inspiratory collapse consistent with estimated right atrial pre ssure of 5 mmHg. There is no pericardial effusion. CONCLUSIONS -------- 1. The left ventricular size is normal. 2. There is borderline concentric left ventricular hypertrophy. 3. Overall left ventricular systolic function is normal with, an EF between 60 - 65 %. 4. There is mild aortic regurgitation. 5. The mitral valve leaflets are mildly thickened. 6. Mild tricuspid regurgitation present. 7. Trace/mild (physiologic) pulmonic regurgitation. 8. There is no pericardial effusion. COURIER: Nikole Portillo RDCS
--- NOTE | 2021-09-15 18:32 | US ---
EXAMINATION TYPE: US carotid duplex BILAT DATE OF EXAM: 09/15/2021 COMPARISON: NONE CLINICAL HISTORY: 80-year-old female syncope, weakness TECHNIQUE: Carotid duplex ultrasound examination. Indirect Doppler criteria utilized. FINDINGS: EXAM MEASUREMENTS: RIGHT: Peak Systolic Velocity (PSV) cm/sec ----- Right CCA: 107 ----- Right ICA: 112 ----- Right ECA: 174 ICA/CCA ratio: 1.05 RIGHT: End Diastole cm/sec ----- Right CCA: 19.8 ----- Right ICA: 28.6 ----- Right ECA: 0.0 LEFT: Peak Systolic Velocity (PSV) cm/sec ----- Left CCA: 105 ----- Left ICA: 130 ----- Left ECA: 216 ICA/CCA ratio: 1.24 LEFT: End Diastole cm/sec ----- Left CCA: 16.8 ----- Left ICA: 27.1 ----- Left ECA: 0.0 VERTEBRALS (direction of flow): Right Vertebral: Antegrade Left Vertebral: Antegrade Rhythm: Normal Interior Wirer notes: Mild plaque bilateral bifurcations. Increased velocities bilateral ECA's, greater on the left IMPRESSION: Mild atherosclerotic change at the left carotid bifurcation. No hemodynamically significant internal carotid artery stenosis on either side. Criteria for Assigning % of Stenosis / Diameter reduction (Estimation based on the indirect measurements of the internal carotid artery velocities (ICA PSV). 1. Normal (no stenosis)=ICA PSV < 125 cm/s: ratio < 2.0: ICA EDV<40 cm/s. 2. Less than 50% stenosis=ICA PSV < 125 cm/s: ratio < 2.0: ICA EDV<40 cm/s. 3. 50 to 69% stenosis=ICA PSV of 125 to 230 cm/s: ration 2.0 ? 4.0: ICA EDV 40-100 cm/s. 4. Greater than 70% stenosis to near occlusion= ICA PSV > 230 cm/s: ratio > 4.0: ICA EDV > 100 cm/s. 5. Near occlusion= ICA PSV velocities may be low or undetectable: variable ratio and ICA EDV. 6. Total occlusion=unable to detect flow.
[2021-09-15] MEDS: ATORVASTATIN 20 MG TAB PO SCH (20:42)
[2021-09-15] MEDS: TEMAZEPAM 15 MG CAP PO PRN (20:42)
[2021-09-16] MEDS: SODIUM CHLORIDE 0.9% 1,000 ML IV SCH (03:37)
[2021-09-16 08:01] VITALS: BP 144/67; PULSE 71; RESP 17; TEMP 97.8
[2021-09-16] MEDS ORDERED: FAMOTIDINE 20 MG TAB PO SCH (09:00)
--- NOTE | 2021-09-16 09:33 | P.PN ---
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 Patient follows in the office with Dr. Chairez. We have been asked to see the patient in consultation for syncope. Patient examined at the bedside. Patients daughter present. Patient states she has been feeling weak, tired, and just "blah" lately. She reports waking up yesterday and drove herself to [employer]. She denied having any chest pain, pressure, shortness of breath, dizziness or lightheadedness. The patient was sitting in the pew at [employer] when her daughter states she had a blank stare on her face and became unresponsive. The patient states she could hear her daughter talking to her but she was unable to respond. Daughter states she then began having edu ing/jerking movements of her upper and lower extremities. They lowered the patient to the floor and she then came to. The patient denies biting her tongue. She does report losing control of her bladder at that time. EMS was called at that time. Apparently the patient was then placed on a stretcher and she had another similar episode where she went unresponsive and was having jerking movements of her upper and lower extremities. The patient denies having any history of seizures. She does report having a syncopal episode earlier this year. She states she is worried event monitor in the past with no findings to account for these episodes. She states she checks her blood pressure at home and it usually runs in the 130s systolic which is good for her as she states previously and has ran even higher than that. She does report seen a neurologist last week at [facility] and is undergoing workup for peripheral neuropathy. EKG reveals sinus mechanism with T-wave inversions in V1-V2. Chest xray negative for acute process CT of the brain: Hypodensity within the internal capsule right basal ganglionic and a small lacunar infarct left basal ganglia of indeterminate age. MRI could further evaluate these findings. Chronic appearing periventricular white matter ischemic changes. Laboratory data: WBC 9.4. Hemoglobin 14.5. Platelet count 226. Sodium 135. Potassium 4.3. BUN 16. Creatinine 0.98. Troponin negative 3. ProBNP 177. TSH 3.590. Current home cardiac medications include atorvastatin 20 mg daily, aspirin 81 mg daily, amlodipine 5 mg daily Most recent echocardiogram obtained in May 2020 revealed ejection fraction 60%. [id number] aortic regurgitation. Mild mitral regurgitation. Mild tricuspid regurgitation. Patient underwent Lexiscan stress test in September 2018 which was negative for stress-induced ischemia 09/16/2021 Patient examined this morning at the bedside. Patient denies chest pain or pressure. She denies shortness of breath. Denies dizziness or lightheadedness. No further episodes of syncope. No noted seizure activity. Orthostatic blood pressures obtained were negative. Carotid Doppler obtained revealing mild atherosclerotic changes at the left carotid bifurcation. No hemodynamically significant internal carotid artery stenosis on either side. Echocardiogram completed revealing ejection fraction 60-65%, mild aortic regurgitation, and mild tricuspid regurgitation. PHYSICAL EXAM: VITAL SIGNS: Reviewed. GENERAL: Well-developed in no acute distress. HEENT: Head is normocephalic. Pupils are equal, round. Sclerae anicteric. Mucous membranes of the mouth are moist. Neck supple. No JVD or thyromegaly LUNGS: Respirations even and unlabored. Lungs essentially clear to auscultation bilaterally. HEART: Regular rate and rhythm. S1 and S2 heard. ABDOMEN: Soft. Nondistended. Nontender. EXTREMITIES: Normal range of motion. No clubbing or cyanosis. Peripheral pulses intact. No lower extremity edema NEUROLOGIC: Awake and alert. Oriented x 3. ASSESSMENT: Syncopal episode, r/o seizure vs cardiac etiology, possible vasovagal Hypertension Hyperlipidemia Left renal artery stenosis with atrophic left kidney History of near syncopal episodes Abnormal CT revealing small lacunar infarct left basal ganglia of indeterminate age Covid January 2021 PLAN: Continue current cardiac medications Continue telemetry monitoring to assess for any arrhythmias. Patient not interested in an event monitor at the time of discharge as she has had them in the past and did not like wearing one. May consider loop recorder on an outpatient basis if patient has recurrent syncopal episodes. Neurology consulted. Await further evaluation. EEG ordered. Patient is stable for discharge home today from a cardiac standpoint. She is to follow up outpatient with Dr. Chairez Nurse practitioner note has been reviewed by physician. Signing provider agrees with the documented findings, assessment, and plan of care. Objective - Vital Signs Vital signs: Vital Signs Temp 97.8 F 09/16/21 07:58 Pulse 71 09/16/21 07:58 Resp 17 09/16/21 07:58 BP 144/67 09/16/21 07:58 Pulse Ox 97 09/16/21 07:58 Intake & Output 09/15/21 09/16/21 09/16/21 18:59 06:59 18:59 Intake Total 120 600 Balance 120 600 Intake: Oral 120 600 Other: Voiding Method Toilet Toilet # Voids 1 3 - Labs CBC & Chem 7: 09/15/21 04:51 09/15/21 04:51 Labs: Abnormal Lab Results - Last 24 Hours (Table) 09/15/21 Range/Units 04:51 Monocytes # 1.05 H (0.20-1.00) X 10*3/uL
[2021-09-16] MEDS: amLODIPine 5 MG TAB PO SCH (11:11)
[2021-09-16] MEDS: MAGNESIUM OXIDE 400 MG TAB PO SCH (11:12)
[2021-09-16] MEDS: HEPARIN SODIUM,PORCINE/PF 5,000 UNIT/0.5 ML SYRINGE SQ SCH (11:12)
[2021-09-16] MEDS: ASCORBIC ACID 500 MG TAB PO SCH (11:12)
[2021-09-16] MEDS: CYANOCOBALAMIN 500 MCG TAB PO SCH (11:13)
[2021-09-16] MEDS: ASPIRIN 81 MG PO SCH (11:13)
[2021-09-16] MEDS: MULTIVITAMINS, THERA 1 EACH TAB PO SCH (11:14)
[2021-09-16] MEDS: VIT A,C & E-LUTEIN-MINERALS 1 EACH TAB PO SCH (11:14)
[2021-09-16 11:20] LABS: Basophils # (A) 0.03 X 10*3/uL (0.00-0.10); Basophils % (A) 0.5 %; Eosinophils # (A) 0.11 X 10*3/uL (0.04-0.35); Eosinophils % (A) 1.7 %; HCT 39.1 % (37.2-46.3); HGB 12.9 g/dL (12.0-15.0); Lymphocytes # (A) 0.84 X 10*3/uL (0.90-5.00); Lymphocytes % (A) 12.6 %; MCH 30.6 pg (27.0-32.0); MCV 92.7 fL (80.0-97.0); Monocytes # (A) 0.84 X 10*3/uL (0.20-1.00); Monocytes % (A) 12.6 %; Neutrophils # (A) 4.82 X 10*3/uL (1.80-7.70); Neutrophils % (A) 72.3 %; Platelet Count 199 X 10*3/uL (140-440); RBC 4.22 X 10*6/uL (4.10-5.20); WBC 6.66 X 10*3/uL (4.50-10.00)
--- NOTE | 2021-09-16 11:38 | EEG ---
ELECTROENCEPHALOGRAM REPORT DATE OF SERVICE: 09/16/2021 PREAMBLE: This is an 80-year-old female with syncopal spell. This study is performed to rule out any epileptiform activity. EEG FINDINGS: This is a 21-channel routine EEG recorded with video competent, utilizing 10/20 international system with referential and bipolar montages. Background consists of well developed, well regulated, moderate voltage activity in 9 hertz alpha. Background is posterior-dominant and reactive to eye opening and closing. Photic driving response was seen with some flash frequencies. Hyperventilation was not done. Different stages of sleep were not seen. No focal or generalized epileptiform activity was seen. IMPRESSION: This is a normal awake EEG. No focal, lateralized or epileptiform activity was seen. MMODL / IJN: [id number] /
[2021-09-16 12:06] LABS: African American GFR (CKD) 61.3 (60.0-200.0); Anion Gap 10.4 mmol/L (4.00-12.00); BUN/Creat Ratio 13.6 Ratio (12.00-20.00); Blood Urea Nitrogen 13.5 mg/dL (9.0-27.0); Calcium 8.8 mg/dL (8.7-10.3); Carbon Dioxide 25.8 mmol/L (21.6-31.8); Non-African American GFR(CKD) 52.9 (60.0-200.0); Potassium 4.4 mmol/L (3.5-5.5)
--- NOTE | 2021-09-16 13:34 | P.CNNES ---
History of Present Illness Consult date: 09/16/21 Requesting physician: Berkley Poe Reason for Consult: syncope, r/o seizure, abnormal brain CT History of Present Illness: Patient is a 80-year-old female arrived to the hospital by ambulance on 09/14/2021 at 11:09 AM for a syncopal spell at [facility]. As per EMS flow sheet, patient was at the [employer]. When they arrived, found patient laying supine in the pew with family surrounding her. Family reported that she was sitting in the pew started staring off and passed out for 1-2 minutes. Patient regained responsiveness on her own without intervention. Patient was alert and oriented to person place and time and event. She denied any chest pain shortness of breath or difficulty breathing. No loss of control of bowel or bladder or tongue bite. While she was being interviewed, patient had another syncopal ep isode while sitting, episode lasted about 30 seconds. Patient was two-person lift it to the stretcher. Patient felt nauseous. She was given Zofran without improvement. No vomiting. Her blood pressure at the scene was 109/86, which improved to 174/71. Pulse rate 72. Blood glucose 149. Temperature 98.5. Her vital signs on arrival blood pressure 175/76, pulse 64 temperature 97.4. Her CBC was normal, d-dimer negative. Sodium 131 potassium 4.4, BUN 19, creatinine 0.91. Hepatic panel normal, CPK negative, troponin negative. TSH normal, UA negative. Savage virus PCR negative. Chest x-ray showed no acute cardiopulmonary process. CT head revealed hypodensity within the internal capsule right basal ganglionic and a small lacunar infarct left basal ganglion of indeterminate age. MRI could further evaluate these findings. Chronic appearing periventricular white matter ischemic change. 2-D echo revealed normal left ventricle size. Borderline concentric LVH. EF is between 60-65%. Mild AR. Mitral valve leaflets are mildly thickened. Carotid Doppler revealed mild atherosclerotic change at the left carotid bifurcation. No hemodynamically significant internal carotid artery stenosis on either side. Antegrade flow in both vertebral arteries. EKG shows normal sinus rhythm, possible left atrial enlargement. Septal infarct, age undetermined. Patient tells me that she has been feeling generally weak since she suffered from covid in January 2021. At that time she suffered from 2 syncopal spells while she was walking her dog out. She fainted, got up and fainted again at that time. Some days she feels well other days she does not feel well at all. However for the past 2 days prior to her syncopal spell, she has not been feeling well, as if she was dehydrated. Patient states that while she was in the [employer], she remembers someone coming in front of her, and sat down on the pew, when she felt she couldn't breathe. Shortly after she passed out. Patient states that she was started on new medication Zoloft 50 mg on , 09/11/2021. She felt "out of it" the following day, just slept throughout the day on Wednesday, did not take it. She felt better on Wednesday, took the second dose of Zoloft, and this event happened on Wednesday. 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 She suffered from a black spot in her visual field. She saw an eye doctor, who put "shot in the eye, and it improved her vision. She was told that she had swelling behind the eye. She was started on blood pressure and cholesterol medications after that. She has been taking aspirin 81 mg daily since then. Patient also tells me that in May 2021, she was given blood pressure medication, and the blood pressure dropped from 200 systolic down to 100/49 and she had a syncopal spell at that time as well. Patient smoked half pack per day from age 19 until age 28 then she quit. She drinks alcohol very very occasionally. Patient states that she was seen by a neurologist recently for restless-type symptoms in her legs. She had an EMG performed, and was diagnosed with mild neuropathy. She has significant anxiety, severe claust rophobia. She lives by herself. Denies diabetes. She does have hypertension. Review of Systems Completely unremarkable at this time. No fever or chills. No chest pain, abdominal pain nausea vomiting diarrhea. All review of systems reviewed and unremarkable. Past Medical History Past Medical History: Hyperlipidemia, Hypertension, Renal Disease Additional Past Medical History / Comment(s): She also has a history of Paget's disease of the bone, inner ear problems, and macular degeneration. 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 She has had cautery of the cervix on 2 occasions, most recently in 2013 for uncertain reasons. Covid January. Left renal atrophy History of Any Multi-Drug Resistant Organisms: None Reported Past Surgical History: Bowel Resection, Joint Replacement Additional Past Surgical History / Comment(s): She also had a colonoscopy in 2017 and she has had multiple colonoscopies before this. She had ear surgery at age 23. Past Anesthesia/Blood Transfusion Reactions: No Reported Reaction Past Psychological History: No Psychological Hx Reported Smoking Status: Former smoker Past Alcohol Use History: Rare Additional Past Alcohol Use History / Comment(s): Quit smoking in her 20s. Past Drug Use History: None Reported - Past Family History Brother(s) Family Medical History: Cancer, Diabetes Mellitus Additional Family Medical History / Comment(s): Prostate cancer. Father Family Medical History: Myocardial Infarction (MS) Mother Family Medical History: Diabetes Mellitus Sister(s) Family Medical History: Cancer Additional Family Medical History / Comment(s): Bowel and liver cancer. Another sister had lung cancer and breast cancer. Medications and Allergies Home Medications Medication Instructions Recorded Confirmed Type Atorvastatin [Lipitor] 20 mg PO HS 03/29/18 09/14/21 History Cyanocobalamin (Vitamin B-12) 1,000 mcg PO DAILY 03/29/18 09/14/21 History [Vitamin B-12] Multivit-Min/FA/Lycopen/Lutein 1 tab PO DAILY 03/29/18 09/14/21 History [Centrum Silver Tablet] Vit C/E/Zn/Coppr/Lutein/Zeaxan 1 cap PO DAILY 03/29/18 09/14/21 History [Preservision Areds 2 Softgel] Aspirin 81 mg PO DAILY 09/26/19 09/14/21 History Ascorbic Acid [Vitamin C] 500 mg PO DAILY 12/24/20 09/14/21 History Turmeric Root Extract [Turmeric] 500 mg PO DAILY 05/14/21 09/14/21 History Citracal Slow Release 1 cap PO DAILY 09/14/21 09/14/21 History Cranberry Fruit Extract [Cranberry] 500 mg PO DAILY 09/14/21 09/14/21 History Ferrous Sulfate [Feosol] 325 mg PO Q48H 09/14/21 09/14/21 History Glucosamine Sulfate 1,000 mg PO DAILY 09/14/21 09/14/21 History Magnesium 250 mg PO DAILY 09/14/21 09/14/21 History Temazepam [Restoril] 15 mg PO HS PRN 09/14/21 09/14/21 History amLODIPine BESYLATE 5 mg PO DAILY 09/14/21 09/14/21 History Famotidine [Pepcid] 20 mg PO DAILY tab 09/16/21 Rx Allergies Allergy/AdvReac Type Severity Reaction Status Date / Time Penicillins Allergy Rash/Hives Verified 09/14/21 12:31 Sulfa (Sulfonamide Allergy Rash/Hives Verified 09/14/21 12:31 Antibiotics) Physical Examination - Vital Signs Vital Signs: Vital Signs Temp Pulse Pulse Pulse Resp BP BP 09/16/21 08:00 17 09/16/21 07:58 97.8 F 71 17 144/67 09/16/21 01:39 98.1 F 72 18 159/69 09/15/21 20:00 89 77 85 20 09/15/21 18:59 98.2 F 89 20 169/70 09/15/21 14:52 98.1 F 85 18 162/60 09/15/21 14:00 18 Pulse Ox 09/16/21 08:00 09/16/21 07:58 97 09/16/21 01:39 97 09/15/21 20:00 09/15/21 18:59 98 09/15/21 14:52 96 09/15/21 14:00 Intake and Output 09/15/21 09/16/21 09/16/21 22:59 06:59 14:59 Intake Total 600 Balance 600 Intake: Oral 600 Other: Voiding Method Toilet Toilet # Voids 1 3 Patient is an elderly female, in no acute distress. Patient is alert awake oriented to time place and person. Speech and language functions are normal. Patient can name and repeat very well. No aphasia or dysarthria. Attention, concentration and fund of knowledge is adequate. On cranial examination, pupils are round and reacting to light, visual logan are full on confrontation, with no neglect on double simultaneous termination. Her extraocular muscles are intact with no nystagmus. Face is symmetric, tongue protrudes to the midline. Palatal elevation and sensation normal, hearing and shoulder shrug normal, facial sensation normal. Shoulder shrug normal. On muscle strength testing, there is no pronator drift and the strength is normal in arms and legs distally and proximally. Deep tendon reflexes are 1+ and symmetric and plantars downgoing. Sensory to touch is equal with no neglect on double simultaneous stimulation. Cerebellar function showed no ataxia for [id number] testing. No dysdiadochokinesia. Tone and bulk of muscles normal. Gait normal. On general examination, there is no carotid bruit or murmur, S1-S2 audible. Abdomen is soft nontender. Chest is clear. Peripheral pulses are present. No edema. Results - Laboratory Findings CBC and BMP: 09/16/21 07:03 09/16/21 07:03 Abnormal Lab Findings: Abnormal Labs 09/14/21 09/14/21 09/14/21 11:30 11:30 11:37 Lymphocytes # 0.9 L Monocytes # Sodium 131 L BUN 19 H Glucose 137 H POC Glucose (mg/dL) 131 H Urine Ketones 09/14/21 09/15/21 09/15/21 15:45 04:51 04:51 Lymphocytes # Monocytes # 1.05 H Sodium 135 L BUN Glucose POC Glucose (mg/dL) Urine Ketones 1+ H Assessment and Plan Assessment: * Syncopal spell, likely vasovagal. 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 * Abnormal CT with evidence of old stroke, probably due to above. * Hyperlipidemia Plan: * Patient had a syncopal spell, unlikely to be a seizure. Patient however underwent EEG, which was normal. No epileptiform activity was seen. * CT head revealed hypodensity within the internal capsule right basal ganglia and a small lacunar infarct left basal ganglion of indeterminate age. MRI could further evaluate these findings. Chronic appearing periventricular w gladis matter ischemic change. I spoke to patient about MRI of the brain. She completed declined, due to severe claustrophobia. She states that she cannot even have the door of her room closed because of severe claustrophobia. I suspect this CVA is old that happen 4-5 years ago. Patient was recommended to continue aspirin 81 mg daily and statins. * 2-D echo revealed normal left ventricle size. Borderline concentric LVH. EF is between 60-65%. Mild AR. Mitral valve leaflets are mildly thickened. * Carotid Doppler revealed mild atherosclerotic change at the left carotid bifurcation. No hemodynamically significant internal carotid artery stenosis on either side. Antegrade flow in both vertebral arteries. * EKG shows normal sinus rhythm, possible left atrial enlargement. Septal infar ct, age undetermined. * Patient was recommended to undergo health maintenance through her primary phy sician with fasting lipid panel and hemoglobin A1c as an outpatient. * Neurologically clear for discharge.
--- NOTE | 2021-09-17 15:17 | P.DS ---
Providers Date of admission: 09/15/21 15:44 Attending physician: Tevin Aguilar Consults: 09/15/21 09:15 Consult Physician Routine Consulting Provider: Sanjay Ortega Consult Reason/Comments: syncope, r/o seizure, abnormal brain CT Do you want consulting provider notified?: Yes Primary care physician: Eve Feng Hospital Course: Final Diagnosis Acute syncopal episode likely orthostatic hypotension. Rule out cardiac arrhythmia Recently started on Zoloft for anxiety, on hold Hypovolemia hypovolemic History of palpitations COVID-19 infection January 2021 Hypertension Hyperlipidemia Paget's disease of the bone and inner ear issues Previous history of smoking History of CVA 4 to 5 years ago GI and DVT prophylaxis Heparin subcu Discharge Disposition Patient is discharged home to follow up with PCP, Human Resources Communications Manager, Neurologist, Assisted Living Assistant. Patient was cleared from neurology services who recommends a fasting lipid panel and A1c outpatient for health maintenance. Patient declined holter monitor testing outpatient. She will follow up with PCP about an alternative to zoloft and will discontinued this on discharge. Hospital Course This is a pleasant 80-year-old female who presented to the hospital with a history of syncopal episode 2 when she was sitting on the chair at the [employer]. Patient was stating prior to the episode, she cannot recollect exactly what happened prior to that episode. She denies palpitations, denies dizziness or blurry vision. She denies any focal weakness, no fever or chills. There is no chest pain or shortness of breath. Patient has a past medical history is significant for hypertension, hyperlipidemia, history of palpitations and saw cardiology, Pagets disease of the bone and innner ear problems, and COVID infection January 2021 and previous history of smoking. Also recently patient was seen by nephrology and was discovered shortly has one kidney. Patient was also seen by neurology in the past couple days and had an EMG for possible neuromuscular disease. Patient's also get a bilateral lower extremity arterial duplex in there is also a lesion on the mastoid processes patient is following up with ENT for. Patient is receiving started on Zoloft for anxiety issues related to all of these recent medical findings. She felt like she did not within medication made her feel and she skipped a dose. Chest x-ray on admission showed no acute coronary process. EKG showed normal sinus rhythm. Per patient's family they felt that since her colon infection January 2010 1 her symptoms have been getting worse. Admission Showed White Count 9.4, Hemoglobin 14.5 and Platelets of 226. Sodium Was 131, Potassium 4.4 Chloride 101, BUN 19 and Creatinine 0.9. Blood Sugar Is Elevated at 137 Liver enzymes Are within Normal Limits. Troponin 1 Is WNL, and ProBNP Is 177. Additional diagnostics include a brain CT which shows hypodensity within the internal capsule right basal ganglia and a small lacunar infarct left basal ganglia of indeterminate age. MRI could further evaluate these findings. Chronic appearing periventricular white matter ischemic changes. Patient refuses MRI due to severe claustrophobia. Chronic Doppler shows mild plaque bilateral bifurcations, increased velocities bilateral ECA's greater on the left. Echocardiogram shows an EF of 60-65%. Patient is evaluated by neurology who also recommended an EEG which was negative for any epileptiform activity. Orthostatics were negative. Patient is cleared for discharge on aspirin and Lipitor. 09/16/2021 Patient is evaluated today resting in bed. EEG was negative for an epileptiform activity. Neurology has cleared the patient for discharge. Focal neurological examination is negative. , Lungs are clear to auscultation S1-S2 is auscultated. Patient will follow-up outpatient with cardiology and neurology as well as nephrology. She does not wish to resume zoloft on discharge and will talk to her PCP about a different medication. Labs today are unremarkable. Vital show a temperature of 97.8, heart rate 71 sinus rhythm, blood pressure 144/67 and patient is 97% on room air. Please see medication reconciliation for list of current medications. Thank you for allowing us to participate in care of this patient. Patient Condition at Discharge: Fair Plan - Discharge Summary Discharge Rx Participant: Yes New Discharge Prescriptions: New Famotidine [Pepcid] 20 mg PO DAILY tab Continue Vit C/E/Zn/Coppr/Lutein/Zeaxan [Preservision Areds 2 Softgel] 1 cap PO DAILY Multivit-Min/FA/Lycopen/Lutein [Centrum Silver Tablet] 1 tab PO DAILY Cyanocobalamin (Vitamin B-12) [Vitamin B-12] 1,000 mcg PO DAILY Atorvastatin [Lipitor] 20 mg PO HS Aspirin 81 mg PO DAILY Ascorbic Acid [Vitamin C] 500 mg PO DAILY Turmeric Root Extract [Turmeric] 500 mg PO DAILY Magnesium 250 mg PO DAILY Ferrous Sulfate [Iron (65 MG Elemental)] 325 mg PO Q48H Glucosamine Sulfate 1,000 mg PO DAILY Citracal Slow Release 1 cap PO DAILY amLODIPine BESYLATE 5 mg PO DAILY Cranberry Fruit Extract [Cranberry] 500 mg PO DAILY Temazepam [Restoril] 15 mg PO HS PRN PRN Reason: Insomnia Discharge Medication List Atorvastatin [Lipitor] 20 mg PO HS 03/29/18 [History] Cyanocobalamin (Vitamin B-12) [Vitamin B-12] 1,000 mcg PO DAILY 03/29/18 [History] Multivit-Min/FA/Lycopen/Lutein [Centrum Silver Tablet] 1 tab PO DAILY 03/29/18 [History] Vit C/E/Zn/Coppr/Lutein/Zeaxan [Preservision Areds 2 Softgel] 1 cap PO DAILY 03/29/18 [History] Aspirin 81 mg PO DAILY 09/26/19 [History] Ascorbic Acid [Vitamin C] 500 mg PO DAILY 12/24/20 [History] Turmeric Root Extract [Turmeric] 500 mg PO DAILY 05/14/21 [History] Citracal Slow Release 1 cap PO DAILY 09/14/21 [History] Cranberry Fruit Extract [Cranberry] 500 mg PO DAILY 09/14/21 [History] Ferrous Sulfate [Iron (65 MG Elemental)] 325 mg PO Q48H 09/14/21 [History] Glucosamine Sulfate 1,000 mg PO DAILY 09/14/21 [History] Magnesium 250 mg PO DAILY 09/14/21 [History] Temazepam [Restoril] 15 mg PO HS PRN 09/14/21 [History] amLODIPine BESYLATE 5 mg PO DAILY 09/14/21 [History] Famotidine [Pepcid] 20 mg PO DAILY tab 09/16/21 [Rx] Follow up Appointment(s)/Referral(s): Angela Chairez MD [STAFF PHYSICIAN] - 09/22/21 10:30 am Eve Feng DO [Primary Care Provider] - 1-2 days Patient Instructions/Handouts: Syncope (DC) Activity/Diet/Wound Care/Special Instructions: Follow-up with neurology Follow-up with nephrology Discharge Disposition: HOME SELF-CARE
== END 2021-09-16 14:20 | disposition home or self-care (01) | DRG 312 ==
LOC: EC 11:09 → 6NMEDSUR 13:32 → OBSVTOIN 09-15 15:44
PROVIDERS: ADMIT Internal Medicine; ATTEND Internal Medicine
DX: I95.1 Orthostatic hypotension (principal); I63.81 Other cerebral infarction due to occlusion or stenosis of small artery; E87.1 Hypo-osmolality and hyponatremia; E78.5 Hyperlipidemia, unspecified; E86.1 Hypovolemia; Z20.822 Contact with and (suspected) exposure to COVID-19; I12.9 Hypertensive chronic kidney disease with stage 1 through stage 4 chronic kidney disease, or unspecified chronic kidney disease; Z87.891 Personal history of nicotine dependence; Z86.73 Personal history of transient ischemic attack (TIA), and cerebral infarction without residual deficits; Z86.16 Personal history of COVID-19; Z83.3 Family history of diabetes mellitus; Z82.49 Family history of ischemic heart disease and other diseases of the circulatory system; Z80.3 Family history of malignant neoplasm of breast; Z80.1 Family history of malignant neoplasm of trachea, bronchus and lung; Z80.0 Family history of malignant neoplasm of digestive organs; Z79.899 Other long term (current) drug therapy; Z79.82 Long term (current) use of aspirin; N26.1 Atrophy of kidney (terminal); I70.1 Atherosclerosis of renal artery; M88.9 Osteitis deformans of unspecified bone; N18.9 Chronic kidney disease, unspecified; G62.9 Polyneuropathy, unspecified; F40.240 Claustrophobia
CPT/HCPCS: 36415; 70450; 71046; 80048; 80053; 81003; 82550; 83605; 83735; 83880; 84443; 84484; 85025; 85379; 87635; 93005; 93306; 93880; 95816; 96374; 99285

== ENCOUNTER → 2021-10-09 | Outpatient (CLI) | payer MEDICARE, BC | END | disposition home or self-care (01) | LOC: RADUSWWP 08:50 | PROVIDERS: ATTEND Family Medicine | DX: R20.2 Paresthesia of skin (principal); Z86.69 Personal history of other diseases of the nervous system and sense organs | CPT/HCPCS: 93923 ==

== ENCOUNTER → 2022-01-13 | Outpatient (CLI) | payer MEDICARE, BC ==
[2022-01-13 10:53] VITALS: BP 169/69; PULSE 82; RESP 18; TEMP 97.9
--- NOTE | 2022-01-13 11:36 | P.HPOB ---
History of Present Illness H&P Date: 01/13/22 Chief Complaint: The patient is here for her routine gynecologic exam and ma mmogram. This is an 81-year-old 014 with an LMP of 1980. The patient is without gynecologic complaints and denies any postmenopausal bleeding. She has a long history of abnormal Pap smears. Her last Pap smear showed ASCUS with positive high-risk HPV testing(-16, -18). No recommendation could be made by the [facility]CCP management guidelines. The decision was made to repeat the Pap smear in one year. Review of Systems The patient has lost 6 pounds over the last year. She denies respiratory, cardiac, or G.I. problems. Past Medical History Past Medical History: Hyperlipidemia, Hypertension, Renal Disease Additional Past Medical History / Comment(s): She also has a history of Paget's disease of the bone, inner ear problems, and macular degeneration. Orthostatic hypotension. Left renal failure/atrophy. 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 She has had cautery of the cervix on 2 occasions, most recently in 2013 for uncertain reasons. History of Any Multi-Drug Resistant Organisms: None Reported Past Surgical History: Bowel Resection, Joint Replacement Additional Past Surgical History / Comment(s): She also had a colonoscopy in 2017 and she has had multiple colonoscopies before this. She had ear surgery at age 23. Past Anesthesia/Blood Transfusion Reactions: No Reported Reaction Past Psychological History: No Psychological Hx Reported Smoking Status: Former smoker Past Alcohol Use History: Rare (Less than 3 per year) Additional Past Alcohol Use History / Comment(s): Quit smoking in her 20s. Past Drug Use History: None Reported Additional History: She has been a since 2018 and has not been sexually active for several years. She is retired and has 9 great-grandchildren. She currently lives with one of her grandchildren. - Past Family History Brother(s) Family Medical History: Cancer, Diabetes Mellitus Additional Family Medical History / Comment(s): Prostate cancer. Father Family Medical History: Myocardial Infarction ([place]) Mother Family Medical History: Diabetes Mellitus Sister(s) Family Medical History: Cancer Additional Family Medical History / Comment(s): Bowel and liver cancer. Another sister had lung cancer and breast cancer. Medications and Allergies Home Medications Medication Instructions Recorded Confirmed Type Atorvastatin [Lipitor] 20 mg PO HS 03/29/18 01/13/22 History Cyanocobalamin (Vitamin B-12) 1,000 mcg PO DAILY 03/29/18 01/13/22 History [Vitamin B-12] Multivit-Min/FA/Lycopen/Lutein 1 tab PO DAILY 03/29/18 01/13/22 History [Centrum Silver Tablet] Vit C/E/Zn/Coppr/Lutein/Zeaxan 1 cap PO DAILY 03/29/18 01/13/22 History [Preservision Areds 2 Softgel] Aspirin 81 mg PO DAILY 09/26/19 01/13/22 History Ascorbic Acid [Vitamin C] 500 mg PO DAILY 12/24/20 01/13/22 History Turmeric Root Extract [Turmeric] 500 mg PO DAILY 05/14/21 01/13/22 History Citracal Slow Release 1 cap PO DAILY 09/14/21 01/13/22 History Cranberry Fruit Extract [Cranberry] 500 mg PO DAILY 09/14/21 01/13/22 History Ferrous Sulfate [Iron (65 MG 325 mg PO Q48H 09/14/21 01/13/22 History Elemental)] Glucosamine Sulfate 1,000 mg PO DAILY 09/14/21 01/13/22 History Magnesium 250 mg PO DAILY 09/14/21 01/13/22 History Temazepam [Restoril] 15 mg PO HS PRN 09/14/21 01/13/22 History amLODIPine BESYLATE 5 mg PO DAILY 09/14/21 01/13/22 History Famotidine [Pepcid] 20 mg PO DAILY tab 09/16/21 01/13/22 Rx Escitalopram [Lexapro] 10 mg PO DAILY 01/13/22 01/13/22 History Allergies Allergy/AdvReac Type Severity Reaction Status Date / Time Penicillins Allergy Rash/Hives Verified 01/13/22 10:42 Sulfa (Sulfonamide Allergy Rash/Hives Verified 01/13/22 10:42 Antibiotics) Exam Vital Signs Temp Pulse Resp BP Pulse Ox 01/13/22 10:50 97.9 F 82 18 169/69 99 Intake and Output 01/12/22 01/13/22 01/13/22 22:59 06:59 14:59 Other: Weight 65.317 kg Height 5 feet 9 inches, weight 144 pounds, BMI 21.3. This is a well-developed well-nourished white female who is alert and oriented times 3 in no acute distress. HEENT: Within normal limits. NECK: Supple without mass or thyromegaly. CHEST AND LUNGS: Clear to auscultation. HEART: Regular rate and rhythm. BREASTS: Are without mass or discharge. AXILLARY EXAM: Negative for adenopathy. BACK: Negative for CVA tenderness. ABDOMEN: Soft, nontender, without palpable masses. PELVIC EXAM: Normal external genitalia with moderate atrophy. Cervix and vagina appear normal with moderate atrophy. The cervix is somewhat short and nearly flush with the back of the vagina. Consistent with her previous cervical cauterizations. There are no cervical lesions. The cervix is stenotic secondary to atrophy and cauterizations. There is no unusual discharge. There is no evidence of prolapse. The uterus is midposition, nongravid size and nontender. There are no palpable adnexal masses or tenderness. RECTAL EXAM: Rectovaginal exam is negative for mass or tenderness and is negative for occult blood. EXTREMITIES: Nontender. IMPRESSION: 1. 81-year-old menopausal female with unremarkable gynecologic examination. 2. History of multiple cervical cauterizations for uncertain diagnosis sees. She believes her last one was done in 2013. 3. History of abnormal Pap smears. Her most recent Pap smear done on 12/24/2020 showed ASCUS with positive high-risk HPV testing. No recommendation could be given by the [facility]CCP management guidelines. PLAN: 1. Pap smear cotest was performed. Consider referral for colposcopic examination if Pap smears remain abnormal. 2. Self breast awareness was discussed with the patient. We have also discussed symptoms associated with inflammatory breast cancer. 3. Screening mammogram will be done today. 4. Osteoporosis prevention was discussed. 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 She is declining bone density testing at this time. She will let me know if she would like me to resume her bone density testing, or if she would like to see her underwater hunter trapper for this as she has done in the past. 5. She did not receive a cold vaccination, but she states she did have Covid in the past. We have discussed how a Covid vaccination could increase her protection against Covid. 6. She was advised to return in one year for her annual well woman exam and as needed.
--- NOTE | 2022-01-14 08:38 | MM ---
Reason for exam: screening (asymptomatic). Last mammogram was performed 1 year and 1 month ago. History: Patient is postmenopausal and has history of other cancer at age 78. Family history of breast cancer in sister at age 63. Benign excisional biopsy of both breasts, 1979. Physical Findings: A clinical breast exam by your physician is recommended on an annual basis and results should be correlated with mammographic findings. MG 3D Screening Mammo W/Cad Bilateral CC and MLO view(s) were taken. Prior study comparison: December 24, 2020, bilateral MG 3d screening mammo w/cad. September 26, 2019, bilateral MG 3d screening mammo w/cad. The breast tissue is heterogeneously dense. This may lower the sensitivity of mammography. Partially obscured nodular density 12 o'clock right breast zone B/C. ASSESSMENT: Incomplete: need additional imaging evaluation, BI-RAD 0 RECOMMENDATION: Special view mammogram of the right breast. If lesion persists on supplemental views, image directed ultrasound is recommended. [facility] will attempt to contact patient to return for supplemental views and ultrasound if indicated.
== END ==
LOC: WWCWWP 10:34
PROVIDERS: ATTEND Obstetrics & Gynecology
DX: Z12.31 Encounter for screening mammogram for malignant neoplasm of breast (principal); Z01.419 Encounter for gynecological examination (general) (routine) without abnormal findings; E78.5 Hyperlipidemia, unspecified; I10 Essential (primary) hypertension; Z80.3 Family history of malignant neoplasm of breast; Z87.891 Personal history of nicotine dependence; Z78.0 Asymptomatic menopausal state
CPT/HCPCS: 77063; 77067

== ENCOUNTER → 2022-01-15 | Outpatient (CLI) | payer MEDICARE, BC ==
--- NOTE | 2022-01-15 10:35 | MM ---
Reason for exam: additional evaluation requested from abnormal screening. Last mammogram was performed less than 1 month ago. History: Patient is postmenopausal and has history of other cancer at age 78. Family history of breast cancer in sister at age 63. Benign excisional biopsy of both breasts, 1979. Physical Findings: A clinical breast exam by your physician is recommended on an annual basis and results should be correlated with mammographic findings. MG 3D Work Up W/Cad RT Spot compression CC, spot compression MLO, and LM view(s) were taken of the right breast. Prior study comparison: January 13, 2022, bilateral MG 3d screening mammo w/cad. December 24, 2020, bilateral MG 3d screening mammo w/cad. The breast tissue is heterogeneously dense. This may lower the sensitivity of mammography. Right 12 o'clock density 7cm from nipple, measures 7mm. These results were verbally communicated with the patient and result sheet given to the patient on 01/15/22. ASSESSMENT: Incomplete: need additional imaging evaluation, BI-RAD 0 RECOMMENDATION: Ultrasound of the right breast.
--- NOTE | 2022-01-15 10:36 | USB ---
Reason for exam: additional evaluation requested from abnormal screening. History: Patient is postmenopausal and has history of other cancer at age 78. Family history of breast cancer in sister at age 63. Benign excisional biopsy of both breasts, 1979. Physical Findings: A clinical breast exam by your physician is recommended on an annual basis and results should be correlated with mammographic findings. US Breast Workup Limited RT Right limited breast ultrasound including focal area of concern, retroareolar and axilla demonstrates no cystic or solid lesion seen. Scanned 11-1 o'clock. Dense tissue. These results were verbally communicated with the patient and result sheet given to the patient on 01/15/22. ASSESSMENT: Probably benign, BI-RAD 3 RECOMMENDATION: Follow-up diagnostic mammogram of the right breast in 6 months.
== END | disposition home or self-care (01) ==
LOC: RADMAMWWP 09:27
PROVIDERS: ATTEND Obstetrics & Gynecology
DX: R92.8 Other abnormal and inconclusive findings on diagnostic imaging of breast (principal); Z78.0 Asymptomatic menopausal state; Z80.3 Family history of malignant neoplasm of breast
CPT/HCPCS: 77065; 76642; G0279; 77061

== ENCOUNTER → 2022-07-20 | Outpatient (CLI) | payer MEDICARE, BC ==
--- NOTE | 2022-07-20 14:45 | MM ---
Reason for Exam: Additional evaluation requested from prior study. Last screening mammogram was performed 6 month(s) ago. Patient History: Menarche at age 15. First Full-Term at age 26. Postmenopausal. 1979, Bilateral Benign Excisional Biopsy. Sister had breast cancer, age 63. Risk Values: Deepti 5 year model risk: 3.2%. NCI Lifetime model risk: 3.9%. Prior Study Comparison: 12/24/2020 Bilateral Screening Mammogram, [facility]. 01/13/2022 Bilateral Screening Mammogram, [facility]. 01/15/2022 Right Diagnostic Mammogram, [facility]. Tissue Density: Right: The breast tissue is heterogeneously dense. This may lower the sensitivity of mammography. Findings: Analyzed By CAD. Anterior inner subareolar asymmetric density remains unchanged from last year. Other areas of nodular asymmetric density seen on older prior no longer identified. Given the dense breast tissues, further ultrasound evaluation recommended. Overall Assessment: Incomplete: need additional imaging evaluation, BI-RAD 0 Management: Diagnostic Breast Ultrasound of the right breast. For assessment of the medial half of the right breast. Electronically signed and approved by: Izaiah Arias M.D. Radiologist
--- NOTE | 2022-07-20 14:57 | USB ---
Patient History: Menarche at age 15. First Full-Term at age 26. Postmenopausal. 1979, Bilateral Benign Excisional Biopsy. Sister had breast cancer, age 63. Risk Values: Deepti 5 year model risk: 3.2%. NCI Lifetime model risk: 3.9%. Technique: Method: Targeted. Patient Position: Supine. Prior Study Comparison: 12/24/2020 Bilateral Screening Mammogram, [facility]. 01/13/2022 Bilateral Screening Mammogram, [facility]. 01/15/2022 Right Diagnostic Mammogram, [facility]. Findings: The medial section of the breast of the right breast and the retroareolar of the right breast were scanned. Scanned the right medial breast from 1200 to 600 with no abnormality seen by ultrasound.Scanning targeted to the 12:00 to 6:00 area, medial half of the right breast. Dense tissues are present throughout. No solid or cystic lesion.. Overall Assessment: Benign, BI-RAD 2 Management: Screening Mammogram of both breasts in 6 months. 2. Patient should continue monthly self breast exams. A clinical breast exam by your physician is recommended on an annual basis. 3. This exam should not preclude additional follow-up of suspicious palpable abnormalities. Electronically signed and approved by: Izaiah Arias M.D. Radiologist
== END | disposition home or self-care (01) ==
LOC: RADMAMWWP 13:32
PROVIDERS: ATTEND Obstetrics & Gynecology
DX: R92.8 Other abnormal and inconclusive findings on diagnostic imaging of breast (principal); Z78.0 Asymptomatic menopausal state; Z80.3 Family history of malignant neoplasm of breast
CPT/HCPCS: 77065; 76642; G0279; 77061

== ENCOUNTER → 2023-01-19 | Outpatient (CLI) | payer MEDICARE, BC ==
[2023-01-19 12:48] VITALS: BP 150/79; PULSE 96; RESP 16; TEMP 97.8
--- NOTE | 2023-01-19 13:29 | P.HPOB ---
History of Present Illness H&P Date: 01/19/23 Chief Complaint: The patient is here for her routine gynecologic exam and ma mmogram. This is an 82-year-old 014 with an LMP of 1981. The patient is without gynecologic complaints and denies any postmenopausal bleeding. She has had a long history of abnormal Pap smears and has had 2 types of cervical procedures, either cautery or cryotherapy of the cervix. Most recently this was done in 2013. Her Pap smear on 12/24/2020 showed ASCUS with positive high-risk HPV t esting. This was repeated on 01/13/2022 and had a negative Pap smear with positive high-risk HPV testing (-16, -18) Review of Systems The patient has gained 14 pounds over the last year. She denies respiratory, cardiac, or G.I. problems. Past Medical History Past Medical History: Hyperlipidemia, Hypertension, Renal Disease Additional Past Medical History / Comment(s): She also has a history of Paget's disease of the bone, inner ear problems, and macular degeneration. Orthostatic hypotension. Left renal failure/atrophy. 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 She has had cautery of the cervix on 2 occasions, most recently in 2013 for uncertain reasons. History of Any Multi-Drug Resistant Organisms: None Reported Past Surgical History: Bowel Resection, Joint Replacement Additional Past Surgical History / Comment(s): She also had a colonoscopy in 2017 and she has had multiple colonoscopies before this. She had ear surgery at age 23. Past Anesthesia/Blood Transfusion Reactions: No Reported Reaction Past Psychological History: No Psychological Hx Reported Smoking Status: Former smoker Past Alcohol Use History: Rare (0-3 per year) Additional Past Alcohol Use History / Comment(s): Quit smoking in her 20s. Past Drug Use History: None Reported Additional History: She has been a since 2018 and has not been sexually active since approximately 2010. She is retired and is expecting her 10th great grandchild. She lives on her own. - Past Family History Brother(s) Family Medical History: Cancer, Diabetes Mellitus Additional Family Medical History / Comment(s): Prostate cancer. Father Family Medical History: Myocardial Infarction ([place]) Mother Family Medical History: Diabetes Mellitus Sister(s) Family Medical History: Cancer Additional Family Medical History / Comment(s): Bowel and liver cancer. Another sister had lung cancer and breast cancer. Medications and Allergies Home Medications Medication Instructions Recorded Confirmed Type Atorvastatin [Lipitor] 20 mg PO HS 03/29/18 01/19/23 History Cyanocobalamin (Vitamin B-12) 1,000 mcg PO DAILY 03/29/18 01/19/23 History [Vitamin B-12] Multivit-Min/FA/Lycopen/Lutein 1 tab PO DAILY 03/29/18 01/19/23 History [Centrum Silver Tablet] Aspirin 81 mg PO DAILY 09/26/19 01/19/23 History Ascorbic Acid [Vitamin C] 500 mg PO DAILY 12/24/20 01/19/23 History Citracal Slow Release 1 cap PO DAILY 09/14/21 01/19/23 History Cranberry Fruit Extract [Cranberry] 500 mg PO DAILY 09/14/21 01/19/23 History Glucosamine Sulfate 1,000 mg PO DAILY 09/14/21 01/19/23 History Magnesium 250 mg PO DAILY 09/14/21 01/19/23 History Temazepam [Restoril] 15 mg PO HS PRN 09/14/21 01/19/23 History amLODIPine BESYLATE 5 mg PO DAILY 09/14/21 01/19/23 History Escitalopram [Lexapro] 10 mg PO DAILY 01/13/22 01/19/23 History Escitalopram [Lexapro] 10 mg PO DAILY 01/19/23 01/19/23 History Vit C/E/Zn/Coppr/Lutein/Zeaxan 1 tablet PO DAILY 01/19/23 01/19/23 History [Preservision Areds 2 Chew Tab] Allergies Allergy/AdvReac Type Severity Reaction Status Date / Time Penicillins Allergy Rash/Hives Verified 01/19/23 12:37 Sulfa (Sulfonamide Allergy Rash/Hives Verified 01/19/23 12:37 Antibiotics) Exam Vital Signs Temp Pulse Resp BP Pulse Ox 01/19/23 12:44 97.8 F 96 16 150/79 100 Intake and Output 01/18/23 01/19/23 01/19/23 22:59 06:59 14:59 Other: Weight 71.668 kg Height 5 feet 9 inches, weight 158 pounds, BMI 23.3. This is a well-developed well-nourished white female who is alert and oriented times 3 in no acute distress. HEENT: Within normal limits. NECK: Supple without mass or thyromegaly. CHEST AND LUNGS: Clear to auscultation. HEART: Regular rate and rhythm. BREASTS: Are without mass or discharge. AXILLARY EXAM: Negative for adenopathy. BACK: Negative for CVA tenderness. ABDOMEN: Soft, nontender, without palpable masses. PELVIC EXAM: Normal external genitalia with moderate atrophy. The cervix is somewhat short and stenotic consistent with her previous cryocautery of the cervix in the past. There is moderate cervical and vaginal atrophy without lesions. There is no unusual discharge. There is no evidence of prolapse. The uterus is midposition, nongravid size and nontender. There are no palpable adnexal masses or tenderness. RECTAL EXAM: Rectovaginal exam is negative for mass or tenderness and is negative for occult blood. EXTREMITIES: Nontender. IMPRESSION: 1. 82-year-old menopausal female with unremarkable gynecologic exam. 2. History of multiple cervical cryocautery procedures in the past for uncertain diagnoses, most recently done approximately 2013. 3. Previous Pap smear was negative with positive high-risk HPV testing(-16, - 18). PLAN: 1. Pap smear cotest was performed. 2. Self breast awareness was discussed with the patient. We have also discussed symptoms associated with inflammatory breast cancer. 3. Screening mammogram will be done today. 4. Osteoporosis prevention was discussed. She states she had a recent bone density test done in [address] Thomson. She'll continue to do testing and management for her bones through Dr. thomson. 5. She was advised to return in one year for her annual well woman exam and as needed.
--- NOTE | 2023-01-20 09:00 | MM ---
Reason for Exam: Screening (asymptomatic). Last screening mammogram was performed 12 month(s) ago. Patient History: Menarche at age 15. First Full-Term at age 26. Postmenopausal. 1979, Bilateral Benign Excisional Biopsy. Sister had breast cancer, age 63. Risk Values: Deepti 5 year model risk: 3.0%. NCI Lifetime model risk: 3.3%. Prior Study Comparison: 01/13/2022 Bilateral Screening Mammogram, [facility]. 01/15/2022 Right Diagnostic Mammogram, [facility]. 07/20/2022 Right MG 3D diag mammo w/cad RT, [facility]. Tissue Density: The breast tissue is heterogeneously dense. This may lower the sensitivity of mammography. Findings: Analyzed By CAD. Benign-appearing vascular calcification is redemonstrated bilaterally. There is no suspicious new group of microcalcifications or new suspicious mass in either breast. Overall Assessment: Benign, BI-RAD 2 Management: Screening Mammogram of both breasts in 1 year. Some advise bilateral breast ultrasound surveillance in patients with background dense tissue. A clinical breast exam by your physician is recommended on an annual basis and results should be correlated with mammographic findings. Electronically signed and approved by: Yassine Moncada M.D.
== END ==
LOC: WWCWWP 12:27
PROVIDERS: ATTEND Obstetrics & Gynecology
DX: Z12.31 Encounter for screening mammogram for malignant neoplasm of breast (principal); Z01.419 Encounter for gynecological examination (general) (routine) without abnormal findings; E78.5 Hyperlipidemia, unspecified; I10 Essential (primary) hypertension; N18.9 Chronic kidney disease, unspecified; Z88.0 Allergy status to penicillin; Z88.2 Allergy status to sulfonamides; Z87.891 Personal history of nicotine dependence
CPT/HCPCS: 77063; 77067

== ENCOUNTER → 2024-05-03 | Outpatient (CLI) | payer MEDICARE, BC ==
[2024-05-03 11:07] VITALS: BP 145/74; PULSE 86; RESP 16; TEMP 98.2
--- NOTE | 2024-05-03 11:56 | P.HPOB ---
History of Present Illness H&P Date: 05/03/24 Chief Complaint: The patient is here for her routine gynecologic exam and ma mmogram. This is an 83-year-old -0-1-4 with an LMP of 1981. Patient is without gynecologic complaints and denies any postmenopausal bleeding. She has a long history of abnormal Pap smears and has had 2 cervical procedures, either cautery or cryotherapy of the cervix. She is uncertain when these were done in the past. She did have a colposcopic examination in 2013 which was negative this was following 2 ASCUS Pap smears. Pap smears in 2015 and 2017 were negative. In 2020 she had an ASCUS Pap smear with positive high risk HPV testing. In 2021 and and 2022 she had negative Pap smears and positive high-risk HPV testing. She underwent a colposcopic examination on 02/11/[address] Guajardo. The colposcopic examination showed no acetowhite areas, but the cervix was stenotic and an ECC could not be performed. Review of Systems The patient has lost 3 pounds over the last year. She denies respiratory, cardiac, or G.I. problems. Past Medical History Past Medical History: Hyperlipidemia, Hypertension, Renal Disease Additional Past Medical History / Comment(s): She also has a history of Paget's disease of the bone, inner ear problems, and macular degeneration. Orthostatic hypotension. Left renal failure/atrophy. 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 She has had cautery of the cervix on 2 occasions, most recently in 2013 for uncertain reasons. History of Any Multi-Drug Resistant Organisms: None Reported Past Surgical History: Bowel Resection, Joint Replacement Additional Past Surgical History / Comment(s): She also had a colonoscopy in 2017 and she has had multiple colonoscopies before this. She had ear surgery at age 23. Cryotherapy or cauterization of the cervix x 2 in the past. Past Anesthesia/Blood Transfusion Reactions: No Reported Reaction Past Psychological History: No Psychological Hx Reported Smoking Status: Former smoker Past Alcohol Use History: Rare (0-3 drinks per year.) Additional Past Alcohol Use History / Comment(s): Quit smoking in her 20s. Past Drug Use History: None Reported Additional History: She is a and has not been sexually active since 2009. She is retired and has 14 great grandchildren. She lives on her own. - Past Family History Brother(s) Family Medical History: Cancer, Diabetes Mellitus Additional Family Medical History / Comment(s): Prostate cancer. Father Family Medical History: Myocardial Infarction ([place]) Mother Family Medical History: Diabetes Mellitus Sister(s) Family Medical History: Cancer Additional Family Medical History / Comment(s): Bowel and liver cancer. Another sister had lung cancer and breast cancer. Medications and Allergies Home Medications Medication Instructions Recorded Confirmed Type Atorvastatin [Lipitor] 20 mg PO HS 03/29/18 05/03/24 History Cyanocobalamin (Vitamin B-12) 1,000 mcg PO DAILY 03/29/18 05/03/24 History [Vitamin B-12] Aspirin 81 mg PO DAILY 09/26/19 05/03/24 History Ascorbic Acid [Vitamin C] 500 mg PO DAILY 12/24/20 05/03/24 History Citracal Slow Release 1 cap PO DAILY 09/14/21 05/03/24 History Cranberry Fruit Extract [Cranberry] 500 mg PO DAILY 09/14/21 05/03/24 History Glucosamine Sulfate 1,000 mg PO DAILY 09/14/21 05/03/24 History Magnesium 250 mg PO DAILY 09/14/21 05/03/24 History Temazepam [Restoril] 15 mg PO HS PRN 09/14/21 05/03/24 History amLODIPine BESYLATE 5 mg PO DAILY 09/14/21 05/03/24 History Escitalopram [Lexapro] 10 mg PO DAILY 01/13/22 05/03/24 History Vit C/E/Zn/Coppr/Lutein/Zeaxan 1 tablet PO DAILY 01/19/23 05/03/24 History [Preservision Areds 2 Chew Tab] Allergies Allergy/AdvReac Type Severity Reaction Status Date / Time Penicillins Allergy Rash/Hives Verified 05/03/24 10:54 Sulfa (Sulfonamide Allergy Rash/Hives Verified 05/03/24 10:54 Antibiotics) Exam Vital Signs Temp Pulse Resp BP Pulse Ox 05/03/24 10:55 98.2 F 86 16 145/74 97 Intake and Output 05/02/24 05/03/24 05/03/24 22:59 06:59 14:59 Other: Weight 70.307 kg Height 5 feet 9 inches, weight 155 pounds, BMI 22.9. This is a well-developed well-nourished white female who is alert and oriented t imes 3 in no acute distress. HEENT: Within normal limits. NECK: Supple without mass or thyromegaly. CHEST AND LUNGS: Clear to auscultation. HEART: Regular rate and rhythm. BREASTS: Are without mass or discharge. AXILLARY EXAM: Negative for adenopathy. BACK: Negative for CVA tenderness. ABDOMEN: Soft, nontender, without palpable masses. PELVIC EXAM: Normal external genitalia moderate atrophy. Cervix and vagina reveals moderate atrophy. The cervix is stenotic with mild generalized pallor and is somewhat flush with the back of the vagina consistent with previous cryotherapy or cauterization of the cervix. There is no unusual discharge. There is no evidence of prolapse. The uterus is midposition, nongravid size and nontender. There are no palpable adnexal masses or tenderness. RECTAL EXAM: Rectovaginal exam is negative for mass or tenderness and is negative for occult blood. EXTREMITIES: Nontender. IMPRESSION: 1. 83-year-old menopausal female with unremarkable gynecologic examination 2. History of multiple cervical cryocautery procedures in the past for uncertain diagnosis these. Unremarkable colposcopic examination on 02/11/2023. 3. Negative Pap smears with positive high-risk HPV testing (-16, -18) in 2021 and 2022. PLAN: 1. Pap smear was performed. ASCCP management guidelines do not have a recommendation for her situation. If the Pap smear is negative we will consider continuing Pap smears every 2 to 3 years. If this Pap smear shows ASCUS or greater, reflex HPV testing will be performed. 2. Self breast awareness was discussed with the patient. We have also dis cussed symptoms associated with inflammatory breast cancer. 3. Screening mammogram will be done today. 4. Osteoporosis prevention was discussed. I have stressed the importance of adequate calcium, vitamin D and regular exercise. Recommended amounts of calcium and vitamin D were also discussed. She will continue to see Dr. Thomson for her bone density testing as she has done in the past. She states they have been coming back normal and above average for her age. 5. PHQ-2 depression screening was performed and she scored 1. She states she does not feel depressed, but often does not feel like leaving her home to do activities. If she is feeling depressed, she is to follow-up with her PCP to further discuss options 6. She was advised to return in one year for her annual well woman exam.
== END ==
LOC: WWCWWP 10:40
PROVIDERS: ATTEND Obstetrics & Gynecology
DX: Z12.31 Encounter for screening mammogram for malignant neoplasm of breast (principal); Z78.0 Asymptomatic menopausal state; Z87.891 Personal history of nicotine dependence; Z80.3 Family history of malignant neoplasm of breast; Z98.890 Other specified postprocedural states; Z88.0 Allergy status to penicillin; Z88.2 Allergy status to sulfonamides
CPT/HCPCS: 77063; 77067